=== PATIENT | female | born 1960 | race Caucasian/White ===

== ENCOUNTER 2023-07-21 10:50 | Emergency (ER) | payer OTHER, SELFPAY ==
[2023-07-21 10:54] VITALS: BP 172/100; PULSE 69; RESP 16; TEMP 37.3; O2SAT 98; BMI 33.3
--- NOTE | 2023-07-21 11:42 | ED_ITS ---
HPI - Head Injury General Chief complaint: Head Injury Stated complaint: HEADACHE Time Seen by Provider: 07/21/23 11:35 History of Present Illness HPI Narrative: This patient is here after falling and hitting her head Friday night at home. She said her family members heard a thumping sound and they found her in the bathroom she was sitting up. She remembers getting up to use the bathroom that night but not making it there. After she woke up from the fall, she did use the restroom and then went back to bed. She did not indicate that they want her to come in and get checked even though she did have a loss of consciousness that evening. She is on aspirin. Additionally her blood pressure medicines were just increased recently but she has not been taking her blood pressure at home. She says she has a little bit of a dull aching over the left temporal area. She has not had any drainage from her ears. She had a bloody nose Friday night that stopped on its own. She has not had any vomiting. She does not have any paresis paresthesias tingling or numbness of her trunk torso or extremities. 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 Related Data Home Medications Medication Instructions Recorded Confirmed aspirin 81 mg tablet,delayed 81 mg PO DAILY 07/21/23 07/21/23 release (Adult Aspirin Regimen) buspirone 10 mg tablet 10 mg PO BID 07/21/23 07/21/23 docusate sodium 100 mg capsule 100 mg PO DAILY 07/21/23 07/21/23 (Col-Rite) fexofenadine 60 mg tablet (Ju 60 mg PO BID 07/21/23 07/21/23 Allergy) fluticasone propionate 115 2 puff inhalation BID 07/21/23 07/21/23 mcg-salmeterol 21 mcg/actuation HFA inhaler (Advair HFA) fluticasone propionate 50 2 spray intranasal Q12H 07/21/23 07/21/23 mcg/actuation nasal spray,suspension lisinopril 20 mg tablet 40 mg PO DAILY 07/21/23 07/21/23 metoprolol succinate 25 mg 50 mg PO DAILY 07/21/23 07/21/23 tablet,extended release 24 hr tizanidine 4 mg tablet 4 mg PO Q8H PRN pain 07/21/23 07/21/23 Allergies Allergy/AdvReac Type Severity Reaction Status Date / Time No Known Drug Allergies Allergy Verified 07/21/23 10:54 PFSH PFS Social History Smoking status: Never smoker Exam Narrative Exam Narrative: Very pleasant awake alert [place] x 3 GCS 15. She has mild left temporal discomfort. She does not have any tenderness or palpation of the neck. Very minimal restriction of cervical range of motion due to chronic previous chronic degenerative changes. However motor strength in examination upper extremities is normal with no deficit or symptomatology. There is no CSF otorrhea or rhinorrhea. There is no epistaxis. Her lungs are clear heart sounds are normal there is no S3-S4 or murmur. She has no abdominal discomfort or symptomatology. Her extremities are atraumatic with the exception of minor bruising over the left lateral calf but there is no bony or joint involvement. Constitutional Vital Signs, click to edit/add: Last Vital Signs Temp 99.2 F 07/21/23 10:54 Pulse 69 07/21/23 10:54 Resp 16 07/21/23 10:54 BP 172/100 H 07/21/23 10:54 Pulse Ox 98 07/21/23 10:54 O2 Del Method Room Air 07/21/23 10:54 Course Vital Signs Vital signs: Vital Signs Temperature 99.2 F 07/21/23 10:54 Pulse Rate 69 07/21/23 10:54 Respiratory Rate 16 07/21/23 10:54 Blood Pressure 172/100 H 07/21/23 10:54 Pulse Oximetry 98 07/21/23 10:54 Oxygen Delivery Method Room Air 07/21/23 10:54 Temperature 99.2 F 07/21/23 10:54 Pulse Rate 69 07/21/23 10:54 Respiratory Rate 16 07/21/23 10:54 Blood Pressure 172/100 H 07/21/23 10:54 Pulse Oximetry 98 07/21/23 10:54 Oxygen Delivery Method Room Air 07/21/23 10:54 MDM - Head Injury MDM Narrative Medical decision making narrative: Very pleasant female who 72 hours ago fell while getting up in the middle the evening to go use the restroom. Did not seek care until today because persisting left aching. CT of the head and neurological examination are both completely normal and there is no etiology or explanation based on her EKG and laboratory testing for why she may have had a syncopal episode. This is most consistent with a vasovagal reaction. We did do orthostatic vital signs on here and they are normal. She had a recent increase in her blood pressure medication and I have strongly advised her to monitor her blood pressure on a regular basis. Discharge Plan Discharge Chief Complaint: Head Injury Clinical Impression: Closed head injury Patient Disposition: Home, Self-Care Time of Disposition Decision: 12:43 Prescriptions / Home Meds: No Action buspirone 10 mg tablet 10 mg PO BID fluticasone propionate 50 mcg/actuation spray,suspension 2 spray INTRANASAL Q12H lisinopril 20 mg tablet 40 mg PO DAILY metoprolol succinate 25 mg tablet extended release 24 hr 50 mg PO DAILY tizanidine 4 mg tablet 4 mg PO Q8H PRN (Reason: pain) fluticasone propion-salmeterol [Advair HFA] 115-21 mcg/actuation HFA aerosol inhaler 2 puff inhalation BID fexofenadine [Ju Allergy] 60 mg tablet 60 mg PO BID docusate sodium [Col-Rite] 100 mg capsule 100 mg PO DAILY aspirin [Adult Aspirin Regimen] 81 mg tablet,delayed release (DR/EC) 81 mg PO DAILY Additional Instructions: May use Tylenol. Check your blood pressure frequently follow-up with your primary care doctor Referrals: Chloe Ribeiro MD [Primary Care Provider] - 1 week Stand Alone Forms: Portal Instructions
--- NOTE | 2023-07-21 11:43 | CT_ITS ---
The [address] [address] Patient Name: ENID HORNER MRN: [id number] date: 1960 Sex: F Assigned Patient Location: ER Current Patient Location: ER Accession/Order Number: [id number] Exam Date: 07/21/2023 12:00 Report Date: 07/21/2023 12:38 At the request of: INDIA SERRANO Procedure: CT head/brain wo con EXAM: CT head/brain wo con HISTORY: Trauma left temporal history of fall COMPARISON: None. TECHNIQUE: Axial soft tissue and bone windows through the calvarium with coronal and sagittal reformats. Findings: No depressed or calvarial fracture. The paranasal sinuses and mastoid air cells are well aerated. No air-fluid levels. No extra-axial fluid collection. No intra-axial or extra-axial bleed. No mass effect or midline shift. The boykin-white matter differentiation is preserved. The brain parenchymal volume is age appropriate. The ventricles are nondilated. The basal cisterns are patent. The craniovertebral junction is unremarkable. CT/CT head/brain wo con IMPRESSION: 1. No depressed or calvarial fracture. 2. No acute intracranial bleed. Electronically authenticated by: MELISSA OLIVER Date: 07/21/2023 12:38
--- NOTE | 2023-07-21 11:43 | XR_ITS ---
The [address] [address] Patient Name: ENID HORNER MRN: [id number] date: 1960 Sex: F Assigned Patient Location: ER Current Patient Location: ER Accession/Order Number: [id number] Exam Date: 07/21/2023 12:00 Report Date: 07/21/2023 12:29 At the request of: INDIA SERRANO Procedure: XR chest 1V EXAM: XR chest 1V HISTORY: Syncope; technologist notes state fall 07/19/2023 hitting the head above the left ear on a nightstand. COMPARISON: CT chest dated 10/28/2019. TECHNIQUE: AP erect portable chest radiograph performed. FINDINGS: The trachea is midline. The cardiomediastinal silhouette and hilar shadows are within normal limits. The lung larson are clear. There is no pneumothorax. The osseous structures are unremarkable. There are bilateral breast implants. XR/XR chest 1V IMPRESSION: There is no acute cardiopulmonary process. Electronically authenticated by: INESSA CAMARGO Date: 07/21/2023 12:29
--- NOTE | 2023-07-21 11:43 | ECG_ITS ---
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
[2023-07-21 11:48] VITALS: BP 182/106; BP 184/102; BP 186/112; PULSE 59; PULSE 69; PULSE 70
[2023-07-21 11:58] LABS: Basophils Percent Auto 0.5 % (0.2-2.0); Eosinophils Absolute Auto 0.5 10^3/uL (0.0-0.7); Eosinophils Percent Auto 7.8 % (0.9-7.0); Hematocrit 40.9 % (36.0-48.0); Hemoglobin 13.4 g/dL (12.0-16.0); Immature Granulocytes Abs Auto 0.02 10^3/uL (0.00-0.03); Immature Granulocytes Pct Auto 0.3 % (0.0-0.5); Lymphocytes Absolute Auto 2.1 10^3/uL (1.2-3.8); Lymphocytes Percent Auto 31.6 % (20.5-60.0); Mean Corpuscular HGB Conc 32.8 g/dL (29.9-35.2); Mean Corpuscular Hemoglobin 30.7 pg (26.7-34.0); Mean Corpuscular Volume 93.8 fL (81.0-99.0); Mean Platelet Volume 10.2 fL (9.5-13.5); Monocytes Absolute Auto 0.6 10^3/uL (0.3-0.8); Monocytes Percent Auto 9.5 % (1.7-12.0); Neutrophils Absolute Auto 3.3 10^3/uL (1.4-6.5); Neutrophils Percent Auto 50.3 % (43.0-75.0); Platelet Count 221 10^3/uL (150-450); Red Blood Count 4.36 10^6/uL (4.20-5.40); Red Cell Distribution Width 12.7 % (11.0-15.0); White Blood Count 6.5 10^3/uL (4.0-11.0)
[2023-07-21 12:02] LABS: Alanine Aminotransferase 20 U/L (14-59); Albumin Globulin Ratio 1.2; Albumin Level 3.9 g/dL (3.4-5.0); Alkaline Phosphatase 65 U/L (46-116); Anion Gap 13.6; Aspartate Amino Transferase 16 U/L (15-37); BUN Creatinine Ratio 18.6; Bilirubin Total 0.6 mg/dL (0.2-1.0); Calcium 9.1 mg/dL (8.5-10.1); Carbon Dioxide 28.4 mmol/L (21.0-32.0); Chloride 103 mmol/L (98-107); Estimated GFR (African America >60 (>=60); Estimated GFR (Non-African Ame >60 (>=60); Globulin 3.3 g/dL; Glucose 87 mg/dL (74-106); Sodium 141 mmol/L (136-145); Total Protein 7.2 g/dL (6.4-8.2)
[2023-07-21 12:07] LABS: Bilirubin Urine NEGATIVE (NEGATIVE); Blood Urine TRACE-I (NEGATIVE); Clarity Urine CLEAR (CLEAR); Color Urine LT. YELLOW (YELLOW); Glucose Urine UA NEGATIVE (NEGATIVE); Ketones Urine NEGATIVE (NEGATIVE); Leukocyte Esterase Urine TRACE (NEGATIVE); Nitrite Urine NEGATIVE (NEGATIVE); Protein Urine NEGATIVE (NEG/TRACE); Urobilinogen Urine 0.2 EU/dL (0.2-1.0)
[2023-07-21 12:08] LABS: Urine Microscopic Indicated YES
[2023-07-21 12:13] LABS: Bacteria Urine TRACE #/HPF (NONE SEEN); WBC Urine 0-2 #/HPF (NONE SEEN)
[2023-07-21 12:14] LABS: Cast Seen? NONE SEEN #/LPF (NONE SEEN); Crystals Seen? None Seen #/HPF (None Seen); Mucus Urine NONE SEEN (NONE SEEN); Squamous Epithelial Cell Urine FEW #/LPF (NONE/RARE); Urine Culture Indicated NO
[2023-07-21 12:21] LABS: Lactate/Lactic Acid 1.4 mmol/L (0.4-2.0)
== END 2023-07-21 13:09 | disposition home or self-care (01) ==
PROVIDERS: Emergency Provider Emergency Medicine Emergency Medical Services; PCP Family Medicine
DX: S09.8XXA Other specified injuries of head, initial encounter (principal); W19.XXXA Unspecified fall, initial encounter; Z79.82 Long term (current) use of aspirin; Z79.899 Other long term (current) drug therapy
CPT/HCPCS: 36415; 70450; 71045; 80053; 81001; 83605; 84484; 85025; 93005; 99285

== ENCOUNTER 2023-09-12 16:53 | Emergency (ER) | payer OTHER, SELFPAY ==
[2023-09-12 16:58] VITALS: BP 160/91; PULSE 68; TEMP 36.7; O2SAT 99; BMI 33.3
--- OUTSIDE RECORDS SUMMARY | 2023-09-12 17:12 | XMS_ITS | CCD ---
Author Organization [facility] Care Team Providers Care Tie Worker Name Role Phone Chloe Crum Primary Care Provider CHLOE CRUM Primary Care Unavailable MARK DELATORRE Referring Lillian Crum MD, Chloe Primary Care Provider SKYLA, DR CHLOE Paz Consulting Unavailable CRUM, DR CHLOE Paz Primary Care Unavailable CRUM, DR CHLOE Paz Admitting Unavailable CRUM, DR CHLOE Paz Attending Unavailable CRUM, DR CHLOE Paz Attending Unavailable CRUM, DR CHLOE Paz Consulting Unavailable CRUM, DR CHLOE Paz Primary Care Unavailable CRUM, DR CHLOE Paz Admitting Unavailable [facility], MARY ANNE Consulting Unavailable CRUM, DR CHLOE Paz Attending Unavailable CRUM, DR CHLOE Paz Consulting Unavailable CRUM, DR CHLOE Paz Primary Care Unavailable CRUM, DR CHLOE Paz Admitting Unavailable CRUM, DR CHLOE Paz Attending Unavailable CRUM, DR CHLOE Paz Primary Care Unavailable [place], DR MARY ANNE Nails Consulting Unavailable CRUM, DR CHLOE Paz Admitting Unavailable CRUM, DR CHLOE Paz Consulting Unavailable CRUM, DR CHLOE Paz Attending Unavailable CRUM, DR CHLOE Paz Consulting Unavailable CRUM, DR CHLOE Paz Primary Care Unavailable CRUM, DR CHLOE Paz Admitting Unavailable Chloe Crum Unavailable Lawson Spangler Unavailable CHLOE CRUM Primary Care Unavailable CHLOE CRUM Referring Unavailable Allergies Allergy Classification Reported Allergen(s) Allergy Type Date of Onset Reaction(s) Facility (11 sources) Fish derivative Drug allergy Comment:Shellfi sh Pocketbook Other (11 sources) Shellfish Drug allergy 9 Unknown Pocketbook Other Medications Current Medications Medication Drug Class(es) Dates Sig (Normalized) Sig (Original) acetaminophen 325 mg / HYDROcodone bitartrate 5 mg oral tablet (3 sources) Opioid Agonist Start: 12-13-2014 HYDROcodone-aceta minophen (NORCO) 5-325 MG per tablet 0 12/13/2014 Active [id number] actuat albuterol 0.09 mg/actuat metered dose inhaler (17 sources) beta2-Adrenergic Agonist Start: 07-30-2023 End: 07-30-2023 take 1 puff(s) by inhalation every four hours Albuterol Sulfate Active 2 PUFF INHALATION Every 4 hours 8.5 July 30, 2023 2:34pm Start: 09-03-2022 take 2 puff(s) by in halation every four hours as needed Albuterol Sulfate HFA 108 (90 Base) MCG/ACT 2 puff Inhalation every 4 hrs prn Aug, Active Start: 09-03-2022 take 2 puff(s) by in halation every four hours as needed Albuterol Sulfate HFA 108 (90 Base) MCG/ACT 2 puff Inhalation every 4 hrs prn Aug, Active Start: 03-22-2014 PROAIR HFA 108 (90 BASE) MCG/ACT inhaler Start: 03-22-2014 PROAIR HFA 108 (90 BASE) MCG/ACT inhaler take 2 puff(s) by mo uth every four hours as needed Albuterol Sulfate HFA 108 (90 Base) MCG/ACT INHALE 2 PUFFS BY MOUTH EVERY 4 HOURS NEEDED for 17 Active Albuterol Sulfate 108 (90 Base) MCG/ACT (4 sources) take 1 puff(s) by inhalation every four hours as needed Albuterol Sulfate 108 (90 Base) MCG/ACT 1 puff as needed Inhalation every 4 hrs PRN Active Ju-D Allergy & Congestion (15 sources) Ju-D Allerg y & Congestion PRN Active amLODIPine 5 mg oral tablet (1 source) Dihydropyridine Calcium Channel Will Start: take 1 tablet by mouth once daily Amlodipine (Norvasc) 5 mg tablet Active 5 MG PO Daily August 05, 2023 12:00am Aspir-81 (4 sources) Aspir-81 Active aspirin 81 mg delayed release oral tablet (1 source) Platelet Aggregation Inhibitor, Nonsteroidal Anti-inflammatory Drug Start: take 81 mg by mouth once daily Aspirin Active 81 MG PO Daily August 04, 2023 12:00am azithromycin 250 mg oral tablet (6 sources) Macrolide Antimicrobial Start: Azithromycin 250 MG as directed Orally 2 tabs po today, then 1 tab daily x 4 more days for 5 Apr, Active Start: 09-03-2022 Azithromycin 2 50 MG as directed Orally 2 tabs po today, then 1 tab daily x 4 more days for 5 Aug, Active Azithromycin 250 MG as directed Orally Not-Taking busPIRone hydrochloride 10 mg oral tablet (8 sources) Start: 08-04-2023 take 1 tablet by mouth twice daily Buspirone Active 1 TAB PO Twice daily August 04, 2023 12:00am FreeTextSig: TAKE 1 TABLET BY MOUTH TWICE DAILY; Note: Source Status: Taking; Refills: 1; Qty: 60 Tablet; Provider: Skyla Paz take 1 tablet by mouth twice alanis ly busPIRone HCl 10 mg TAKE 1 TABLET BY MOUTH TWICE DAILY for 30 Active docusate calcium 240 mg oral capsule (12 sources) Start: 08-04-2023 take 240 mg by mouth once daily Docusate Calcium Active 240 MG PO Daily August 04, 2023 12:00am Docusate Calcium Active [id number] 0.3 ml EPINEPHrine 1 mg/ml auto-injector (16 sources) alpha-Adrenergic Agonist, beta-Adrenergic Agonist, Catecholamine Start: 08-04-2023 Epinephrine Activ e 0.3 ML SUBCUT As Directed August 04, 2023 12:00am FreeTextSig: as directed Injection; Note: Source Status: TakingPRN; Provider: Skyla Corona ( ) EpiPen 2-Anthony 0.3 MG/0.3ML as directed Injection PRN Active escitalopram 10 mg oral tablet (6 sources) Serotonin Reuptake Inhibitor Start: 12-27-2022 take 1 tablet by mouth every twenty-four hours Lexapro 10 MG 1 tablet Orally Once a day for 30 day(s) Dec, Active estrogens, conjugated (senior living) 0.625 mg oral tablet (6 sources) Estrogen Start: 03-31-2017 take 1 tablet by mouth once daily estrogens, conjugated, (PREMARIN) 0.625 MG tablet Indications: Surgical menopause Take 1 tablet by mouth daily 90 tablet 3 03/31/2017 Active take 1 tablet by ana cristina th every twenty-four hours Premarin 0.3 MG 1 tablet Orally Once a day for 30 days Not-Taking 12 hr fexofenadine hydrochloride 60 mg / pseudoephedrine hydrochloride 120 mg extended release oral tablet (1 source) alpha-Adrenergic Agonist, Histamine-1 Receptor Antagonist Start: 08-04-2023 take 1 tablet by mouth once, then take 1 tablet by mouth every twelve hours Fexofenadine-Pseudoephedrine (Uj-D 12 Hour) 60-120 mg tablet extended release 12 hr Active TAB PO August 04, 2023 12:00am Medication Name: Ju-D Allergy & Congestion; Note: Source Status: TakingPRN; Provider: Skyla Corona ( ) fluconazole 150 mg oral tablet (3 sources) Azole Antifungal Start: 03-22-2014 fluconazole (DIFLUCAN) 150 M G tablet FLUoxetine 10 mg oral capsule (1 source) Serotonin Reuptake Inhibitor Start: 08-05-2023 take 10 mg by mouth once daily Fluoxetine Active 10 MG PO Daily 30 August 05, 2023 12:00am fluticasone propionate 0.05 mg/actuat metered dose nasal spray (16 sources) Corticosteroid Start: 08-04-2023 take 1 spray(s) nasal route once daily Fluticasone Propionate Active 1 SPRAY INTRANASAL Daily August 04, 2023 12:00am FreeTextSi spray in each nostril Nasally Once a day; Note: Source Status: Taking; Provider: Skyla Corona ( ) take 1 spray(s) nasal route once daily Fluticasone Propionate 50 MCG/ACT 1 spray in each nostril Nasally Once a day Active take 1 spray(s) nasal route once daily Fluticasone Propionate 50 MCG/ACT 1 spray in each nostril Nasally Once a day Active Fluticasone Propion-Salmeterol (19 sources) Corticosteroid, beta2-Adrenergic Agonist Start: 08-04-2023 take 1 puff(s) by mouth every twelve hours as needed Fluticasone Propion-Salmeterol (Advair Diskus) 100-50 mcg/dose blister with device Active INHALATION August 04, 2023 12:00am FreeTextSig: INHALE 1 PUFF BY MOUTH EVERY 12 HOURS NEEDED; Note: Source Status: Taking; Refills: 3; Qty: 60 Blister; Provider: Skyla Corona ( ) Start: 04-30-2015 ADVAIR DISKUS 100-50 MCG/DOSE diskus inhaler take 1 puff(s) by mo uth every twelve hours as needed Advair Diskus 100-50 MCG/ACT INHALE 1 PUFF BY MOUTH EVERY 12 HOURS NEEDED for 30 Active take 1 puff(s) by in halation twice daily as needed Advair Diskus 100-50 MCG/ACT 1 puff Inhalation Twice a day PRN Active levoFLOXacin 500 mg oral tablet (3 sources) Quinolone Antimicrobial Start: 03-12-2013 levofloxacin (LEVAQUIN) 500 MG tablet lisinopril 40 mg oral tablet (19 sources) Angiotensin Converting Enzyme Inhibitor Start: 08-04-2023 take 1 tablet by mouth once daily Lisinopril Active 40 MG PO Daily August 04, 2023 12:00am FreeTextSig: TAKE 1 TABLET BY MOUTH DAILY; Note: Source Status: Refill; Refills: 3; Qty: 90 Tablet; Provider: Skyla Paz Start: 04-22-2017 take 1 tablet by ana cristina th once daily lisinopril (PRINIVIL;ZESTRIL) 20 MG tablet TAKE 1 TABLET BY MOUTH EVERY DAY 1 04/22/2017 Active take 1 tablet by ana cristina th once daily Lisinopril 40 MG TAKE 1 TABLET BY MOUTH DAILY for 90 days Active methylPREDNISolone 4 mg oral tablet (2 sources) Corticosteroid Start: 04-22-2023 methylPREDNISolone 4 MG as directed Orally for 6 days Apr, Active 24 hr metoprolol succinate 50 mg extended release oral tablet (19 sources) beta-Adrenergic Will Start: 08-04-2023 take 1 tablet by mouth once daily Metoprolol Succinate Active 50 MG PO Daily August 04, 2023 12:00am FreeTextSig: TAKE 1 TABLET BY MOUTH DAILY; Note: Source Status: Continue; Provider: Skyla Corona ( ) Start: 04-09-2017 take 1 tablet by ana cristina th once daily in the morning metoprolol succinate (TOPROL XL) 25 MG extended release tablet TAKE 1 TABLET BY MOUTH EVERY MORNING 1 04/09/2017 Active take 1 tablet by ana cristina th once daily Metoprolol Succinate ER 50 mg TAKE 1 TABLET BY MOUTH DAILY Active Multivitamins (4 sources) Multivitamins Ac tive ondansetron 4 mg disintegrating oral tablet (3 sources) Serotonin-3 Receptor Antagonist Start: 015 ondansetron (ZOFRAN-ODT) 4 MG disintegrating tablet 0 12/13/2014 Active predniSONE 20 mg oral tablet (3 sources) Start: 014 predniSONE (DELTASONE) 20 MG tablet 72 hr scopolamine 0.0139 mg/hr transdermal system (2 sources) Anticholinergic Start: 023 Scopolamine 1 MG/3DAYS 1 patch to skin behind the ear as needed Transdermal for 7 days Aug, Active tiZANidine 4 mg oral tablet (16 sources) Central alpha-2 Adrenergic Agonist Start: 024 take 1 tablet by mouth three times daily as needed Tizanidine Active 4 MG PO Three times daily August 04, 2023 12:00am FreeTextSig: TAKE 1 TABLET BY MOUTH THREE TIMES DAILY NEEDED; Note: Source Status: Refill; Refills: 3; Qty: 30 Tablet; Provider: Skyla Paz take 1 tablet by ana cristina th three times daily as needed tiZANidine HCl 4 mg TAKE 1 TABLET BY ANA CRISTINA TH THREE TIMES DAILY NEEDED for 10 days Active Completed/Discontinued Medications Medication Drug Class(es) Dates Sig (Normalized) Sig (Original) ciprofloxacin 250 mg oral tablet (3 sources) Quinolone Antimicrobial take 1 tablet by mouth every twelve hours Ciprofloxacin HCl 250 MG 1 tablet Orally every 12 hrs Not-Taking Digestive Support (3 sources) Digestive Suppor t Not-Taking Fish Oils (3 sources) Fish Oil Not-Raij ing Problems Active Problems Problem Classification Problem Date Documented Da te Episodic/Chronic Abdominal pain (20 sources) Unspecified abdominal pain; Translations: [Abdominal pain] Onset: 02-11-2022 Episodic Allergic reactions (20 sources) Unspecified contact dermatitis due to plants, except food; Translations: [Anaphylactic reaction due to shellfish (crustaceans), initial encounter] Episodic Anal and rectal conditions (4 sources) Rectal pain; Translations: [Rectal pain] Episodic Anxiety disorders (14 sources) Anxiety; Translations: [Anxiety disorder, unspecified] Chronic Asthma (20 sources) Asthma; Translations: [Unspecified asthma, uncomplicated] Chronic Chronic obstructive pulmonary disease and bronchiectasis (1 source) Bronchitis, not specified as acute or chronic Episodic Diseases of mouth; excluding dental (20 sources) Dry mouth, unspecified; Translations: [Xerostomia] Onset: 02-21-2022 Episodic Essential hypertension (20 sources) Hypertensive disorder; Translations: [Essential (primary) hypertension] Chronic Fluid and electrolyte disorders (19 sources) Dehydration; Translations: [Dehydration] Onset: 12-03-2021 Episodic Genitourinary symptoms and ill-defined conditions (20 sources) Unspecified symptoms and signs involving the genitourinary system; Translations: [Dysuria] Onset: 02-08-2022 Episodic Menopausal disorders (19 sources) Menopausal and postmenopausal disorders; Translations: [Unspecified menopausal and perimenopausal disorder] Chronic Nausea and vomiting (4 sources) Nausea; Translations: [Nausea] Episodic Noninfectious gastroenteritis (19 sources) Gastroenteritis; Translations: [Noninfective gastroenteritis and colitis, unspecified] Episodic Osteoarthritis (4 sources) Localized, primary osteoarthritis of the wrist; Translations: [Primary osteoarthritis, left wrist] Onset: 09-18-2016 Chronic Other circulatory disease (4 sources) Elevated blood-pressure reading without diagnosis of hypertension; Translations: [Elevated blood-pressure reading, without diagnosis of hypertension] Episodic Other connective tissue disease (15 sources) Muscle pain; Translations: [Myalgia, unspecified site] Episodic Other connective tissue disease (4 sources) Pain in limb; Translations: [Pain in left upper arm] Episodic Other connective tissue disease (11 sources) Spasm; Translations: [Other muscle spasm] Episodic Other connective tissue disease (2 sources) Other muscle spasm Episodic Other diseases of kidney and ureters (19 sources) Disorder of kidney and/or ureter; Translations: [Other specified disorders of kidney and ureter] Chronic Other gastrointestinal disorders (4 sources) Irritable bowel syndrome; Translations: [Mixed irritable bowel syndrome] Chronic Other gastrointestinal disorders (1 source) Mixed irritable bowel syndrome Chronic Other gastrointestinal disorders (5 sources) Diarrhea; Translations: [Diarrhea] 06-28-2023 Episodic Other gastrointestinal disorders (5 sources) Constipation; Translations: [Constipation] 06-28-2023 Episodic Other lower respiratory disease (15 sources) Nodule of lung; Translations: [Solitary pulmonary nodule] Episodic Other lower respiratory disease (4 sources) Solitary nodule of lung; Translations: [Solitary pulmonary nodule] Episodic Other non-traumatic joint disorders (5 sources) Pain in right hip; Translations: [PAIN IN RIGHT HIP] Onset: 07-18-2022 Episodic Other nutritional; endocrine; and metabolic disorders (15 sources) Body mass index 30+ - obesity; Translations: [Body mass index (BMI) 32.0-32.9, adult] Chronic Other nutritional; endocrine; and metabolic disorders (12 sources) Obese class I; Translations: [Body mass index (BMI) 32.0-32.9, adult] Onset: 09-18-2016 Chronic Other nutritional; endocrine; and metabolic disorders (4 sources) Simple obesity ; Translations: [Other obesity due to excess calories] Onset: 09-18-2016 Chronic Other screening for suspected conditions (not mental disorders or infectious disease) (4 sources) Patient encounter status; Translations: [Encounter for screening mammogram for malignant neoplasm of breast] Onset: 04-08-2023 Episodic Other skin disorders (4 sources) Localized swelling, mass and lump, left lower limb; Translations: [Localized swelling, mass and lump, left lower limb] Episodic Other upper respiratory disease (4 sources) Seasonal allergic rhinitis; Translations: [Other seasonal allergic rhinitis] Chronic Other upper respiratory disease (4 sources) Allergic rhinitis due to pollen; Translations: [Allergic rhinitis due to pollen] Chronic Other upper respiratory infections (4 sources) Chronic sinusitis; Translations: [Chronic sinusitis, unspecified] Chronic Other upper respiratory infections (9 sources) Acute pharyngitis; Translations: [Acute pharyngitis, unspecified] Episodic Residual codes; unclassified (15 sources) Tobacco user; Translations: [Tobacco use] Episodic Skin and subcutaneous tissue infections (19 sources) Cellulitis of left upper limb; Translations: [Cellulitis of left upper limb] Episodic Superficial injury; contusion (4 sources) Nonvenomous insect bite of thigh without infection; Translations: [Insect bite (nonvenomous), unspecified lower leg, initial encounter] Episodic Unclassified (2 sources) Patient encounter status; Translations: [Breast cancer screening by mammogram] Past or Other Problems Problem Classification Problem Date Documented Da te Episodic/Chronic Acute bronchitis (4 sources) Acute bronchitis; Translations: [Acute bronchitis, unspecified] Onset: 03-22-2014 Episodic Cardiac dysrhythmias (4 sources) Palpitations; Translations: [Palpitations] Onset: 04-22-2017 Episodic Inflammation; infection of eye (except that caused by tuberculosis or sexually transmitteddisease) (4 sources) External hordeolum; Translations: [Hordeolum externum unspecified eye, unspecified eyelid] Onset: 10-09-2017 Episodic Other acquired deformities (4 sources) Acquired deformity of head; Translations: [Other acquired deformity of head] Onset: 11-05-2018 Episodic Other connective tissue disease (1 source) Myalgia, unspecified site; Translations: [MYALGIA UNSPECIFIED SITE] Onset: 02-25-2022 Episodic Other lower respiratory disease (4 sources) Cough; Translations: [Cough, unspecified] Onset: 03-22-2014 Episodic Urinary tract infections (4 sources) Acute cystitis; Translations: [Acute cystitis without hematuria] Onset: 08-24-2018 Episodic Results Test Name Value Interpretation Reference Range Facility Automated epithelial cells c ount in urine sediment (number/area)on 07-21-2023 Epithelial cells Auto (Urine sed) [#/Area] FEW #/LPF NONE/RARE [facility] Automated leukocytes count i n urine sediment (number/area)on 07-21-2023 WBC Auto (Urine sed) [#/Area] 2-5 #/HPF 0-2 [facility] Automated urine specific gra vity by refractometryon 07-21-2023 Specific gravity Refractometry automated (U) [Rel density] 1.020 1.005-1.025 [facility] Basophils Auto (Bld) [#/Vol] on 07-21-2023 Basophils (Bld) [#/Vol] 0.0 10 3/uL 0.0-0.1 [facility] Basophils/100 WBC Auto (Bld) on 07-21-2023 Basophils/100 WBC (Bld) 0.5 % 0.2-2.0 [facility] Bilirubin Auto test strip (U ) [Mass/Vol]on 07-21-2023 Bilirubin (U) [Mass/Vol] Negative NEGATIVE [facility] Casts typing in urine sedime nt by light microscopyon 07-21-2023 Casts LM Nom (Urine sed) NONE SEEN #/LPF NONE SEEN [facility] Color Auto (U)on 07-21-2023 Color (U) LT. YELLOW YELLOW [facility] Eosinophils/100 WBC Auto (Bl d)on 07-21-2023 Eosinophils/100 WBC (Bld) 7.8 % 0.9-7.0 [facility] Erythrocyte distribution wid th Auto (RBC) [Ratio]on 07-21-2023 Erythrocyte distribution width (RBC) [Ratio] 12.7 % 11.0-15.0 [facility] Estimated glomerular filtrat ion rate (GFR) non- Americanon 07-21-2023 GFR/1.73 sq M.predicted among non-blacks MDRD (S/P/Bld) [Vol rate/Area] mL/min/{1.73_m2} >=60 [facility] Globulin Calc (S) [Mass/Vol] on 07-21-2023 Globulin (S) [Mass/Vol] 3.3 g/dL [facility] Hematocrit Auto (Bld) [Volum e fraction]on 07-21-2023 Hematocrit (Bld) [Volume fraction] 40.9 % 36.0-48.0 [facility] Hemoglobin [Mass/volume] in Bloodon 07-21-2023 Hemoglobin (Bld) [Mass/Vol] 13.4 g/dL 12.0-16.0 [facility] Ketones Auto test strip (U) [Mass/Vol]on 07-21-2023 Ketones (U) [Mass/Vol] Negative NEGATIVE [facility] Laboratory - Chemistry and C hemistry - challengeon 07-21-2023 Albumin [Mass/Vol] 3.9 g/dL 3.4-5.0 [facility] ALP [Catalytic activity/Vol] 65 U/L 46-116 [facility] ALT [Catalytic activity/Vol] 20 U/L 14-59 [facility] AST [Catalytic activity/Vol] 16 U/L 15-37 [facility] Bilirubin [Mass/Vol] 0.6 mg/dL 0.2-1.0 [facility] Calcium [Mass/Vol] 9.1 mg/dL 8.5-10.1 [facility] Chloride [Moles/Vol] 103 mmol/L 98-107 [facility] CO2 [Moles/Vol] 28.4 mmol/L 21.0-32.0 [facility] Creatinine [Mass/Vol] 0.86 mg/dL 0.55-1.02 [facility] GFR/1.73 sq M.predicted MDRD (S/P/Bld) [Vol rate/Area] mL/min/{1.73_m2} >=60 [facility] Glucose [Mass/Vol] 87 mg/dL 74-106 [facility] Lactate [Moles/Vol] 1.4 mmol/L 0.4-2.0 [facility] Potassium [Moles/Vol] 4.0 mmol/L 3.5-5.1 [facility] Protein [Mass/Vol] 7.2 g/dL 6.4-8.2 [facility] Sodium [Moles/Vol] 141 mmol/L 136-145 [facility] Urea nitrogen [Mass/Vol] 16.0 mg/dL 7.0-18.0 [facility] Urea nitrogen/Creatinine [Mass ratio] 18.6 mg/mg [facility] Laboratory - Hematology and Cell countson 07-21-2023 Immature granulocytes/100 WBC (Bld) 0.3 % 0.0-0.5 [facility] Leukocytes [#/volume] correc nikole for nucleated erythrocytes in Blood by Automated counon 07-21-2023 WBC corrected for nucl RBC Auto (Bld) [#/Vol] 6.5 10 3/uL 4.0-11.0 [facility] Lymphocytes Auto (Bld) [#/Vo l]on 07-21-2023 Lymphocytes (Bld) [#/Vol] 2.1 10 3/uL 1.2-3.8 [facility] Lymphocytes/100 WBC Auto (Bl d)on 07-21-2023 Lymphocytes/100 WBC (Bld) 31.6 % 20.5-60.0 [facility] MCH Auto (RBC) [Entitic mass ]on 07-21-2023 MCH (RBC) [Entitic mass] 30.7 pg 26.7-34.0 [facility] MCHC Auto (RBC) [Mass/Vol]on 07-21-2023 MCHC (RBC) [Mass/Vol] 32.8 g/dL 29.9-35.2 [facility] MCV Auto (RBC) [Entitic vol] on 07-21-2023 MCV (RBC) [Entitic vol] 93.8 fL 81.0-99.0 [facility] Monocytes Auto (Bld) [#/Vol] on 07-21-2023 Monocytes (Bld) [#/Vol] 0.6 10 3/uL 0.3-0.8 [facility] Monocytes/100 WBC Auto (Bld) on 07-21-2023 Monocytes/100 WBC (Bld) 9.5 % 1.7-12.0 [facility] Mucus LM Ql (Urine sed)on Mucus Ql (Urine sed) NONE SEEN NONE SEEN [facility] Neutrophils Auto (Bld) [#/Vo l]on 07-21-2023 Neutrophils (Bld) [#/Vol] 3.3 10 3/uL 1.4-6.5 [facility] Neutrophils/100 WBC Auto (Bl d)on 07-21-2023 Neutrophils/100 WBC (Bld) 50.3 % 43.0-75.0 [facility] No Panel Informationon 07-20 Urine Culture Reflexed NO [facility] Urine Microscopic Review YES [facility] Eosinophils # (Auto) 0.5 10 3/uL 0.0-0.7 [facility] Immature Granulocyte # (Auto) 0.02 10 3/uL 0.00-0.03 [facility] Troponin I High Sensitivity 5.0 pg/mL 4.0-51.3 [facility] Comment on above: CUT-OFF POINTS HAVE BEEN ESTABLISHED BASED ON THE FOURTHUNIVERSAL DEFINITION OF MYOCARDIAL INFARCTION. THE UPPERREFERENCE LIMIT (URL) OF TROPONIN, DEFINED THE 99THPERCENTILE OF cTnI DISTRIBUTION IN A REFERENCE POPULATION,HAS BEEN CONFIRMED THE DECISION THRESHOLD FOR MIDIAGNOSIS.99TH PERCENTILE = 51.4 PG/MLNOTE: HIGH-SENSITIVITY TROPONIN ASSAY IS NOT INTENDED TO BEUSED IN ISOLATION BUT SHOULD BE INTERPRETED IN CONJUNCTIONWITH OTHER DIAGNOSTIC AND CLINICAL INFORMATION. Platelet mean volume Auto (B ld) [Entitic vol]on 07-21-2023 Platelet mean volume (Bld) [Entitic vol] 10.2 fL 9.5-13.5 [facility] Platelets Auto (Bld) [#/Vol] on 07-21-2023 Platelets (Bld) [#/Vol] 221 10 3/uL 150-450 [facility] Protein Auto test strip (U) [Mass/Vol]on 07-21-2023 Protein (U) [Mass/Vol] Negative NEG/TRACE [facility] RBC Auto (Bld) [#/Vol]on RBC (Bld) [#/Vol] 4.36 10 6/uL 4.20-5.40 [facility] Serum or plasma albumin/glob ulin mass ratioon 07-21-2023 Albumin/Globulin [Mass ratio] 1.2 {ratio} [facility] Serum or plasma anion gap de terminationon 07-21-2023 Anion gap [Moles/Vol] 13.6 mmol/L [facility] Specific gravity Auto test s trip (U) [Rel density]on 07-21-2023 Specific gravity (U) [Rel density] CLEAR CLEAR [facility] Urine bacteria detection by automated methodon 07-21-2023 Bacteria Auto Ql (U) TRACE #/HPF NONE SEEN [facility] Urine glucose measurement by test strip (mass/volume)on 07-21-2023 Glucose Test strip (U) [Mass/Vol] Negative NEGATIVE [facility] Urine hemoglobin detection b y automated test stripon 07-21-2023 Hemoglobin Auto test strip Ql (U) TRACE-I NEGATIVE [facility] Urine nitrite detection by a utomated test stripon 07-21-2023 Nitrite Auto test strip Ql (U) TRACE NEGATIVE [facility] Nitrite Auto test strip Ql (U) Negative NEGATIVE [facility] Urine sediment crystal ident ification by light microscopyon 07-21-2023 Crystals LM Nom (Urine sed) None Seen #/HPF None Seen [facility] Urine sediment leukocyte cou nt by microscopy (number/high power field)on 07-21-2023 WBC LM.HPF (Urine sed) [#/Area] 0-2 #/HPF NONE SEEN [facility] Urobilinogen Auto test strip (U) [Mass/Vol]on 07-21-2023 Urobilinogen Qn (U) 0.2 {Clarence'U}/dL 0.2-1.0 [facility] pH Auto test strip (U)on pH (U) 6.0 [pH] 5.0-9.0 [facility] ISABEL DIGITAL SCREEN SELF REFERRAL W OR WO CAD BILATERALon 04-08-2023 [facility] ISABEL DIGITAL SCREEN SELF REFERRAL W OR WO CAD BILATERAL EXAMINATION: SCREENING DIGITAL BILATERAL MAMMOGRAM WITH TOMOSYNTHESIS, 04/08/2023 TECHNIQUE: Screening mammography of the bilateral breasts was performed with tomosynthesis. 2D standard and 3D tomosynthesis combination imaging performed through both breasts in the MLO and CC projection using standard and Lewis implant displaced views. Computer aided detection was utilized in the interpretation of this exam. COMPARISON: 29 January 2021; 20 January 2020; 17 Sep 2018; 01 April 2017; 05 June 1999; 02 May 2015 HISTORY: Screening. Positive family history of breast cancer; sister at age 40. 10 year history of hormonal replacement therapy. 10 years of oral contraception. Breast implant placement TC score 13.31 FINDINGS: Breasts are composed of scattered fibroglandular density. No skin thickening, nipple contour changes, suspicious calcifications, suspicious masses, areas of architectural distortion or significant interval changes are noted. The patient has bilateral prepectoral breast implants. Appearance is stable there is chronic irregularity along the superior aspect of the right breast implant on MLO projection which has been present back to the 2014 study IMPRESSION: No evidence of malignancy. Advise annual screening mammography. Patient has nodular asymmetry adjacent to the superolateral aspect of the posterior right breast implant stable since 2015. BI-RADS 2 BIRADS: BIRADS - CATEGORY 2 Benign Findings. Normal interval follow-up is recommended in 12 months. OVERALL ASSESSMENT - BENIGN A letter of notification will be sent to the patient regarding the results. The [employer] recommends annual mammograms for women 40 years and older. Interpreted by: Maryan Lee MD Signed by: Maryan Lee MD 04/08/23 Final result Normal [facility] XR HIP RT 2 3V W PELVISon XR HIP RT 2 3V W PELVIS EXAM: AP of the pelvis and right hip HISTORY: . Pain in right hip joint . COMPARISON: None. TECHNIQUE: 3 views FINDINGS: The pelvis is intact. No fracture or bony destructive process is noted. No fracture or dislocation of the right hip is noted. Surrounding soft tissues are unremarkable. Joint spaces well-maintained. IMPRESSION: 1. Negative AP of the pelvis. 2. Negative right hip Electronically authenticated by: MARY ANNE VALADEZ Date: 2022-07-18 11:29 Normal [facility] CULTURE URINEon 02-21-2022 CULTURE URINE Culture Observations: LIGHT GROWTH OF MIXED GENITAL YO. NO POTENTIAL PATHOGENS SEEN. Normal [facility] Comment on above: Performed By: #### U RCX #### [facility] [address] [place] [address] Dr. Yosi Smith GLYCOHEMOGLOBIN A1Con 2021 ADA RECOMMENDATION SEE BELOW Normal [facility] Comment on above: Result Comment: ADA RECOMMENDED LIMIT 4.0 - 6.0 ADA THERAPEUTIC TARGET < 7.0 ACTION SUGGESTED > 7.0 Performed By: #### A 1C #### [facility] [address] [place] [address] Dr. Yosi Smith Glucose [Mass/Vol] 108 mg/dL Normal [facility] Comment on above: Performed By: #### A 1C #### [facility] [address] [place] [address] Dr. Yosi Smith HbA1c (Bld) [Mass fraction] 5.4 % Normal 4.5-6.2 [facility] Comment on above: Performed By: #### A 1C #### [facility] [address] [place] [address] Dr. Yosi Smith MAGNESIUMon 02-21-2022 Magnesium [Mass/Vol] 1.7 mg/dL Critically low 1.8-2.4 [facility] Comment on above: Performed By: #### M G BMP #### [facility] [address] [place] [address] Dr. Yosi Smith PROF CHEM 8 (BAS METB)on Anion gap [Moles/Vol] 7.0 mmol/L Normal [facility] Comment on above: Performed By: #### M Yared, BMP #### [facility] [address] [address] [address] Yosi Smith Calcium [Mass/Vol] 8.5 mg/dL Normal 8.5-10.[address] [facility] Comment on above: Performed By: #### M G, BMP #### [facility] [address] [address] [address] Yosi Smith Chloride [Moles/Vol] 107 mmol/L Normal 98-107 [facility] Comment on above: Performed By: #### M G, BMP #### [facility] [address] [place] [address] Dr. Yosi Smith CO2 [Moles/Vol] 30.2 mmol/L Normal 21.0-32.0 [facility] Comment on above: Performed By: #### M G, BMP #### [facility] [address] [place] [address] Dr. Yosi Smith Creatinine [Mass/Vol] 0.87 mg/dL Normal 0.55-1.02 [facility] Comment on above: Performed By: #### M G, BMP #### [facility] [address] [address] [address] Yosi Smith EGFR-AF LIBERIAN >60 Normal >=60 [facility] Comment on above: Performed By: #### M G, BMP #### [facility] [address] [place] [address] Dr. Yosi Smith EGFR-NON AF LIBERIAN >60 Normal >=60 [facility] Comment on above: Performed By: #### M G, BMP #### [facility] [address] [place] [address] Dr. Yosi Smith Glucose [Mass/Vol] 92 mg/dL Normal 74-[address] [facility] Comment on above: Performed By: #### M G, BMP #### [facility] [address] [place] [address] Dr. Yosi Smith Potassium [Moles/Vol] 4.2 mmol/L Normal 3.5-5.1 [facility] Comment on above: Performed By: #### M G, BMP #### [facility] [address] [address] [address] Yosi Smith Sodium [Moles/Vol] 140 mmol/L Normal 136-145 [facility] Comment on above: Performed By: #### M G, BMP #### [facility] [address] [place] [address] Dr. Yosi Smith Urea nitrogen [Mass/Vol] 15.0 mg/dL Normal 7.0-18.0 [facility] Comment on above: Performed By: #### M G, BMP #### [facility] [address] [place] [address] Dr. Yosi Smith Urea nitrogen/Creatinine [Mass ratio] 17.2 mg/mg Normal [facility] Comment on above: Performed By: #### M G, BMP #### [facility] [address] [place] [address] Dr. Yosi Smith CULTURE URINEon 02-11-2022 CULTURE URINE Isolate 1 Enterobacter aerogenes 10,000 cfu/mL of ORGANISM 1 Enterobacter aerogenes ANTIBIOTIC M.I.C RX STATUS Piperacillin/Tazobac ovalle <=4 S F Cefazolin <=4 R F Ceftazidime <=1 S F Ceftriaxone <=1 S F Ertapenem <=0.5 S F Imipenem <=0.25 S F Amikacin <=2 S F Gentamicin <=1 S F Tobramycin <=1 S F Ciprofloxacin <=0.25 S F Levofloxacin <=0.12 S F Nitrofurantoin 64 I F Trimethoprim/Sulfame thoxazole <=20 S F Normal [facility] Comment on above: Performed By: #### U RCX #### [facility] [address] [place] [address] Dr. Yosi Smith XR KUB 1 VIEWon 02-11-2022 XR KUB 1 VIEW EXAMINATION: XR KUB 1 VIEW HISTORY: Abdominal pain COMPARISON: No relevant comparison available. FINDINGS: BOWEL GAS PATTERN: No abnormal dilation or deviation. Moderate stool in the right colon CALCIFICATIONS: None significant. OTHER: Rotatory S-shaped curvature of the spine. No abnormal gaseous collections. 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 Yosi Smith Basophils/100 WBC (Bld) 0.4 % Normal 0.2-2.0 [facility] Comment on above: Performed By: #### C BC #### [facility] [address] [address] [address] Yosi Smith EO # 1.1 103/ul Critically high 0.0-0.7 [facility] Comment on above: Performed By: #### C BC #### [facility] [address] [place] [address] Dr. Yosi Smith Eosinophils/100 WBC (Bld) 10.9 % Critically high 0.9-7.0 [facility] Comment on above: Performed By: #### C BC #### [facility] [address] [address] [address] Yosi Smith Erythrocyte distribution width (RBC) [Ratio] 13.4 % Normal 11.0-15.0 [facility] Comment on above: Performed By: #### C BC #### [facility] [address] [place] [address] Dr. Yosi Smith Hematocrit (Bld) [Volume fraction] 40.1 % Normal 36.0-48.0 [facility] Comment on above: Performed By: #### C BC #### [facility] [address] [place] [address] Dr. Yosi Smith Hemoglobin (Bld) [Mass/Vol] 12.7 g/dL Normal 12.0-16.0 [facility] Comment on above: Performed By: #### C BC #### [facility] [address] [place] [address] Dr. Yosi Smith IG # 0.03 10e3/ul Normal 0.00-0.03 [facility] Comment on above: Performed By: #### C BC #### [facility] [address] [place] [address] Dr. Yosi Smith IG % 0.3 % Normal 0.0-0.5 [facility] Comment on above: Performed By: #### C BC #### [facility] [address] [place] [address] Dr. Yosi Smith LYMPH # 2.5 103/ul Normal 1.2-3.8 [facility] Comment on above: Performed By: #### C BC #### [facility] [address] [place] [address] Dr. Yosi Smith Lymphocytes/100 WBC (Bld) 25.6 % Normal 20.5-60.0 [facility] Comment on above: Performed By: #### C BC #### [facility] [address] [place] [address] Dr. Yosi Smith MANUAL DIFF REQ NO Normal [facility] Comment on above: Performed By: #### C BC #### [facility] [address] [place] [address] Dr. Yosi Smith MCH (RBC) [Entitic mass] 28.5 pg Normal 26.7-34.0 [facility] Comment on above: Performed By: #### C BC #### [facility] [address] [place] [address] Dr. Yosi Smith MCHC (RBC) [Mass/Vol] 31.7 g/dL Normal 29.9-35.2 [facility] Comment on above: Performed By: #### C BC #### [facility] [address] [place] [address] Dr. Yosi Smith MCV (RBC) [Entitic vol] 90.1 fL Normal 81.0-99.0 [facility] Comment on above: Performed By: #### C BC #### [facility] [address] [place] [address] Dr. Yosi Smith MONO # 0.9 103/ul Critically high 0.3-0.8 [facility] Comment on above: Performed By: #### C BC #### [facility] [address] [place] [address] Dr. Yosi Smith Monocytes/100 WBC (Bld) 9.0 % Normal 1.7-12.0 [facility] Comment on above: Performed By: #### C BC #### [facility] [address] [place] [address] Dr. Yosi Smiht NEUT # 5.2 103/ul Normal 1.4-6.5 [facility] Comment on above: Performed By: #### C BC #### [facility] [address] [place] [address] Dr. Yosi Smith Neutrophils/100 WBC (Bld) 53.8 % Normal 43.0-75.0 [facility] Comment on above: Performed By: #### C BC #### [facility] [address] [place] [address] Dr. Yosi Smith Platelet mean volume (Bld) [Entitic vol] 9.5 fL Normal 9.5-13.5 [facility] Comment on above: Performed By: #### C BC #### [facility] [address] [place] [address] Dr. Yosi Smith PLT 242 103/ul Normal 150-450 [facility] Comment on above: Performed By: #### C BC #### [facility] [address] [place] [address] Dr. Yosi Smith RBC 4.45 106/ul Normal 4.20-5.40 [facility] Comment on above: Performed By: #### C BC #### [facility] [address] [place] [address] Dr. Yosi Smith WBC 9.7 103/ul Normal 4.0-11.0 [facility] Comment on above: Performed By: #### C BC #### [facility] [address] [place] [address] Dr. Yosi Smith PROF CHEM 8 (BAS METB)on Anion gap [Moles/Vol] 9.6 mmol/L Normal [facility] Comment on above: Performed By: #### B MP #### [facility] [address] [place] [address] Dr. Yosi Smith Calcium [Mass/Vol] 8.8 mg/dL Normal 8.5-10.[address] [facility] Comment on above: Performed By: #### B MP #### [facility] [address] [address] [address] Yosi Smith Chloride [Moles/Vol] 108 mmol/L Critically high 98-107 [facility] Comment on above: Performed By: #### B MP #### [facility] [address] [address] [address] Yosi Smith CO2 [Moles/Vol] 29.5 mmol/L Normal 21.0-32.0 [facility] Comment on above: Performed By: #### B MP #### [facility] [address] [place] [address] Dr. Yosi Smith Creatinine [Mass/Vol] 0.94 mg/dL Normal 0.55-1.02 [facility] Comment on above: Performed By: #### B MP #### [facility] [address] [address] [address] Yosi Smith EGFR-AF LIBERIAN >60 Normal >=60 [facility] Comment on above: Performed By: #### B MP #### [facility] [address] [place] [address] Dr. Yosi Smith EGFR-NON AF LIBERIAN >60 Normal >=60 [facility] Comment on above: Performed By: #### B MP #### [facility] [address] [address] [address] Yosi Smith Glucose [Mass/Vol] 98 mg/dL Normal 74-[address] [facility] Comment on above: Performed By: #### B MP #### [facility] [address] [place] [address] Dr. Yosi Smith Potassium [Moles/Vol] 4.1 mmol/L Normal 3.5-5.1 [facility] Comment on above: Performed By: #### B MP #### [facility] [address] [place] [address] Dr. Yosi Smith Sodium [Moles/Vol] 143 mmol/L Normal 136-[address] [facility] Comment on above: Performed By: #### B MP #### [facility] [address] [place], [place] [address] Dr. Yosi Smith Urea nitrogen [Mass/Vol] 17.0 mg/dL Normal 7.0-18.0 [facility] Comment on above: Performed By: #### B MP #### [facility] [address] [place], [place] [address] Dr. Yosi Smith Urea nitrogen/Creatinine [Mass ratio] 18.1 mg/mg Normal [facility] Comment on above: Performed By: #### B MP #### [facility] [address] [place], [place] [address] [facility] ISABEL DIGITAL SCREEN SELF REFERRAL W OR WO CAD BILATERALOrdered By: Chloe Crum on 01-29-2021 Benign findings. BI-RADS 2 BIRADS: BIRADS - CATEGORY 2 Benign, no evidence of malignancy. Normal interval follow-up is recommended in 12 months. OVERALL ASSESSMENT - BENIGN A letter of notification will be sent to the patient regarding the results. The [employer] recommends annual mammograms for women 40 years and older. [employer] Phone: EXAMINATION: SCREENING DIGITAL BILATERAL MAMMOGRAM WITH TOMOSYNTHESIS, 01/29/2021 TECHNIQUE: Screening mammography of the bilateral breasts was performed with tomosynthesis. 2D standard and 3D tomosynthesis combination imaging performed through both breasts in the MLO and CC projection. Computer aided detection was utilized in the interpretation of this exam. COMPARISON: 01/20/2020, 09/17/2018 HISTORY: Screening. FINDINGS: The breast tissue is composed of scattered fibroglandular tissue. There is no suspicious mass, suspicious microcalcification, or area of architectural distortion. Prepectoral implants in place. [employer] Phone: [employer] Phone: DEXA BONE DENSITY AXIAL SKEL ETONon 07-27-2020 DEXA BONE DENSITY AXIAL SKELETON FOR CHARGE PURPOSES ONLY REPORT TO FOLLOW Interpreted by: Irma Khan DO Signed by: Irma Khan DO 09/11/20 Final result Normal [facility] ISABEL DIGITAL SCREEN SELF REFERRAL W OR WO CAD BILATERALon 01-20-2020 Benign findings. BI-RADS 2 BIRADS: BIRADS - CATEGORY 2 Benign, no evidence of malignancy. Normal interval follow-up is recommended in 12 months. OVERALL ASSESSMENT - BENIGN A letter of notification will be sent to the patient regarding the results. The [employer] recommends annual mammograms for women 40 years and older. [place] EXAMINATION: SCREENING DIGITAL BILATERAL MAMMOGRAM WITH TOMOSYNTHESIS, 01/20/2020 TECHNIQUE: Screening mammography of the bilateral breasts was performed with tomosynthesis. 2D standard and 3D tomosynthesis combination imaging performed through both breasts in the MLO and CC projection. Computer aided detection was utilized in the interpretation of this exam. COMPARISON: 09/17/2018, 04/01/2017 HISTORY: Screening. FINDINGS: The breast tissue is composed of scattered fibroglandular tissue. There is no suspicious mass, suspicious microcalcification, or area of architectural distortion. Prepectoral silicone implants are again demonstrated. [place], [place], pn Incoming Radiant Results From [employer] - 01/20/2020 1:28 PM EDT EXAMINATION: SCREENING DIGITAL BILATERAL MAMMOGRAM WITH TOMOSYNTHESIS, 01/20/2020 TECHNIQUE: Screening mammography of the bilateral breasts was performed with tomosynthesis. 2D standard and 3D tomosynthesis combination imaging performed through both breasts in the MLO and CC projection. Computer aided detection was utilized in the interpretation of this exam. COMPARISON: 09/17/2018, 04/01/2017 HISTORY: Screening. FINDINGS: The breast tissue is composed of scattered fibroglandular tissue. There is no suspicious mass, suspicious microcalcification, or area of architectural distortion. Prepectoral silicone implants are again demonstrated. IMPRESSION: Benign findings. BI-RADS 2 BIRADS: BIRADS - CATEGORY 2 Benign, no evidence of malignancy. Normal interval follow-up is recommended in 12 months. OVERALL ASSESSMENT - BENIGN A letter of notification will be sent to the patient regarding the results. The [employer] recommends annual mammograms for women 40 years and older. [place], [place] Vital Signs Date Time Vital Sign Value Performing Clinician Facility 08-05-2023 09:56-0400 Body height 165.1 cm [facility] 08-05-2023 09:56-0400 Body mass index (BMI) [Ratio] 33.5 kg/m2 [facility] 08-05-2023 09:56-0400 Body weight 91.22 kg [facility] 08-05-2023 09:56-0400 Diastolic blood pressure 85 mm[Hg] [facility] 08-05-2023 09:56-0400 Heart rate 66 /min [facility] 08-05-2023 09:56-0400 Systolic blood pressure 140 mm[Hg] [facility] 06-04-2023 10:30-0500 Body height 165.1 cm Chloe Crum Other [facility] 06-04-2023 10:30-0500 Body mass index (BMI) [Ratio] 34.04 kg/m2 Chloe Crum Other [facility] Other 06-04-2023 10:30-0500 Body weight 92.81 kg Chloe Crum Other [facility] Other 06-04-2023 10:30-0500 Body weight 92.8 kg [facility] 06-04-2023 10:30-0500 Diastolic blood pressure 83 mm[Hg] Chloe Crum Other [facility] 06-04-2023 10:30-0500 Systolic blood pressure 136 mm[Hg] Chloe Crum Other [facility] 04-22-2023 13:00-0500 Body height 165.1 cm Chloe Crum Other [facility] Other 04-22-2023 13:00-0500 Body mass index (BMI) [Ratio] 33.08 kg/m2 Chloe Crum Other [facility] Other 04-22-2023 13:00-0500 Body weight 90.18 kg Chloe Crum Other [facility] Other 04-22-2023 13:00-0500 Diastolic blood pressure 83 mm[Hg] Chloe Crum Other [facility] Other 04-22-2023 13:00-0500 Systolic blood pressure 129 mm[Hg] Chloe Crum Other [facility] Other 01-21-2023 13:00-0400 Body height 165.1 cm Chloe Crum Other [facility] Other 01-21-2023 13:00-0400 Body mass index (BMI) [Ratio] 33.21 kg/m2 Chloe Crum Other [facility] Other 01-21-2023 13:00-0400 Body weight 90.54 kg Chloe Crum Other [facility] Other 01-21-2023 13:00-0400 Diastolic blood pressure 86 mm[Hg] Chloe Crum Other [facility] Other 01-21-2023 13:00-0400 Systolic blood pressure 134 mm[Hg] Chloe Crum Other [facility] Other 12-27-2022 11:15-0400 Body height 165.1 cm Chloe Crum Other [facility] Other 12-27-2022 11:15-0400 Body mass index (BMI) [Ratio] 33.28 kg/m2 Chloe Crum Other [facility] Other 12-27-2022 11:15-0400 Body weight 90.72 kg Chloe Crum Other [facility] Other 12-27-2022 11:15-0400 Diastolic blood pressure 80 mm[Hg] Chloe Crum Other [facility] Other 12-27-2022 11:15-0400 Systolic blood pressure 135 mm[Hg] Chloe Crum Other [facility] Other 09-03-2022 15:30-0400 Body height 165.1 cm Chloe Crum Other [facility] Other 09-03-2022 15:30-0400 Body mass index (BMI) [Ratio] 34.11 kg/m2 Chloe Crum Other [facility] Other 09-03-2022 15:30-0400 Body temperature 97.7 [degF] Chloe Crum Other [facility] Other 09-03-2022 15:30-0400 Body weight 92.99 kg Chloe Crum Other [facility] Other 09-03-2022 15:30-0400 Diastolic blood pressure 84 mm[Hg] Chloe Crum Other [facility] Other 09-03-2022 15:30-0400 SaO2% (BldA) [Mass fraction] 96 % Chloe Crum Other [facility] Other 09-03-2022 15:30-0400 Systolic blood pressure 136 mm[Hg] Chloe Crum Other [facility] Other 07-18-2022 09:30-0500 Body height 165.1 cm Chloe Crum Other [facility] Other 07-18-2022 09:30-0500 Body mass index (BMI) [Ratio] 31.61 kg/m2 Chloe Crum Other [facility] Other 07-18-2022 09:30-0500 Body weight 86.18 kg Chloe Crum Other [facility] Other 07-18-2022 09:30-0500 Diastolic blood pressure 82 mm[Hg] Chloe Crum Other [facility] Other 07-18-2022 09:30-0500 Systolic blood pressure 130 mm[Hg] Chloe Crum Other [employer] Other Encounters Encounter Date Encounter Type Care Provider Facility Start: 08-05-2023 End: 08-05-2023 ambulatory [facility] Work Phone: Start: 08-05-2023 End: 08-05-2023 Patient encounter procedure [facility] Work Phone: Start: 07-30-2023 Non-patient / Non-visit [facility] Work Phone: Start: 07-21-2023 Non-patient / Non-visit [facility] Work Phone: Start: 06-18-2023 End: 06-18-2023 ambulatory Chloe Crum Other [facility] Other Start: 06-18-2023 Telephone encounter Chloe Crum [facility] Start: 06-04-2023 End: 06-04-2023 ambulatory Chloe Crum Other [facility] Other Start: 06-04-2023 Office outpatient vi sit 15 minutes Chloe Crum [facility] Start: 06-04-2023 End: 06-04-2023 Patient encounter procedure [facility] Start: 04-22-2023 End: 04-22-2023 ambulatory Chloe Crum Other [facility] Other Start: 04-22-2023 Office outpatient vi sit 25 minutes Chloe Crum [facility] Start: 04-22-2023 Telephone encounter [facility] Start: 04-08-2023 End: 04-11-2023 ambulatory CHLOE CRUM [facility] Start: 03-28-2023 End: 03-28-2023 ambulatory Chloe Crum Other [facility] Other Start: 03-28-2023 Telephone encounter Chloe Crum [facility] Start: 01-21-2023 End: 01-21-2023 ambulatory Chloe rCum Other [facility] Other Start: 01-21-2023 Office outpatient vi sit 15 minutes Chloe Crum [facility] Start: 01-16-2023 End: 01-16-2023 ambulatory Chloe Crum Other [employer] Other Start: 01-16-2023 Telephone encounter Lawson Spangler [facility] Start: 12-27-2022 End: 12-27-2022 ambulatory Chloe Crum Other [employer] Other Start: 12-27-2022 Office outpatient vi sit 15 minutes Chloe Crum [facility] Start: 09-03-2022 End: 09-03-2022 ambulatory Chloe Crum Other [employer] Other Start: 09-03-2022 Office outpatient vi sit 15 minutes Chloe Crum [facility] Start: 08-20-2022 End: 08-20-2022 ambulatory Chloe Crum Other [employer] Other Start: 08-20-2022 Telephone encounter Chloe Crum [facility] Start: 07-18-2022 Office outpatient vi sit 15 minutes Chloe Crum [facility] Start: 07-18-2022 Telephone encounter Chloe Crum [facility] Start: 07-18-2022 End: 07-19-[address] CHLOE CRUM Facility: Start: 02-21-2022 End: 02-22-[address] CHLOE CRUM Facility:[facility]1 Start: 02-11-2022 End: 02-12-[address] CHLOE CRUM Facility:[facility] Start: 02-08-2022 End: 02-08-[address] CHLOE CRUM Facility:[facility] Start: 12-03-2021 End: 12-04-[address] CHLOE CRUM Facility:[facility] Start: 01-29-2021 End: 01-31-2021 Subsequent hospital visit by physician [facility] At [facility] Mammography Comment on above: Breast cancer screen ing by mammogram Start: 07-27-2020 End: 07-30-2020 ambulatory CHLOE CRUM [facility] Start: 07-27-2020 End: 07-29-2020 Subsequent hospital visit by physician Agus Tolliver [facility] Comment on above: Screening for osteop orosis Start: 01-20-2020 End: 01-22-2020 Subsequent hospital visit by physician [facility] Mamm[facility] Room At [facility] Mammography Comment on above: Breast cancer screen ing by mammogram Procedures Date Procedure Procedure Detail Performing Clinician Start: 01-29-2021 Screening mammograph y bi 2-view breast inc cad Chloe Crum MD Work Phone: Start: 07-28-2020 RADIOLOGY REPORT [facility] Start: 01-20-2020 Screening mammograph y bi 2-view breast inc cad Malissa Thornton Work Phone: Screening for malign ant neoplasm of colon Chloe Crum Other Plan of Treatment Date Care Activity Detail Author Start: 01-29-2023 Screening for malign ant neoplasm of breast Breast cancer screen [employer] Phone: Start: 01-19-2022 Screening for malign ant neoplasm of breast Breast cancer screen [place] Start: 01-17-2021 Influenza vaccination Flu vaccine (# 1) [employer] Phone: Start: 01-18-2020 Influenza vaccination Flu vaccine (# 1) [place] Start: 10-02-2011 Screening for malign ant neoplasm of colon Colon cancer screen colonoscopy [place] Start: 10-02-2011 Shingles Vaccine (1 of 2) Shingles Vaccine (1 of 2) [place] Start: 2006 Screening for malign ant neoplasm of colon Colon cancer screen colonoscopy [facility] [employer] Phone: Start: 2001 Diabetes screen Diabetes screen [facility] Phone: Start: 2001 Lipid panel Lipid screen [place], [place] Start: 1980 DTaP/Tdap/Td vaccine (1 - Tdap) DTaP/Tdap/Td vaccine (1 - Tdap) [place] Start: 1977 COVID-19 Vaccine (1) COVID-19 Vaccin e (1) [facility] [employer] Phone: Start: 1976 HIV screening HIV screen [place], [place] Start: 1961 Creatinine measurement Creatinine mo nitoring [place], [place] Start: 1961 Hepatitis C screening Hepatitis C sc reen [place], [place] Start: 1961 Potassium monitoring Potassium monit oring [place] End: 07-27-2020 DEXA BONE DENSITY AXIAL SKELETON DEXA BONE DENSITY AXIAL SKELETON Imaging Routine Screening for osteoporosis 1 Occurrences starting 07/27/2020 until 07/27/[address] [facility] Phone: Comment on above: 1 Occurrences starti ng 07/27/2020 until 07/27/2020 DEXA BONE DENSITY AX IAL SKELETON DEXA BONE DENSITY AXIAL SKELETON Imaging Routine Screening for osteoporosis 07/27/2020 9:02 AM EST [facility] Phone: Immunizations Immunization Date Immunization Notes Care Provider Fa bre 06-02-2020 diphtheria, tetanus toxoids and acellular pertussis vaccine, unspecified formulation Chloe Crum Other [facility] 03-17-2020 influenza virus vaccine, split virus (incl. purified surface antigen) Chloe Crum Other [employer] Other 03-17-2020 influenza virus vaccine, unspecified formulation [facility] 03-10-2018 influenza virus vaccine, split virus (incl. purified surface antigen) Chloe Crum Other [employer] Other 03-10-2018 influenza virus vaccine, unspecified formulation [facility] 03-19-2017 Influenza Vaccine, unspecified formulation [place], [place] 03-17-2017 AFLURIA QUADRIVALENT 0.5 ML injection [place], [place] 03-07-2016 tetanus and diphther ia toxoids, adsorbed, preservative free, for adult use (5 Lf of tetanus toxoid and 2 Lf of diphtheria toxoid) Chloe Crum Other [facility] 05-04-2014 influenza virus vaccine, unspecified formulation [place], [place] Payers Date Payer Category Payer Unknown [id number] 1960 Unknown [id number] 1960 Unknown [id number] 1960 Unknown [id number] 1960 Unknown [id number] 1960 Unknown [id number] 1960 Unknown [id number] 1959 Unknown [id number] Private Health Insurance [facility] [id number] Social History Date Type Detail Facility Start: 04-29-2017 End: 06-04-2023 Tobacco smoking status NHIS Never smoker [facility] Start: 04-29-2017 End: 01-29-2021 Tobacco use and exposure Never used [facility] Start: 04-29-2017 End: 01-29-2021 Alcohol intake Current drinker of alcohol (finding) [facility] Sex Assigned At Not on file [facility] Exposure to SARS-CoV-2 (event) Not sure [facility] Start: 1960 Sex Assigned At Female M [employer] Work Phone: Sex Assigned At Sex Assigned At Bir th [employer] Other Clinical Notes 07-18-2022 to 06-04-2023 Note Date & Type Note Facility 06-04-2023 Evaluation note Encounter Date Diagnosis Assessment Notes May, Hypertension (ICD-10 - I10) Continue present dose of metoprolol as HR at home readings are 60-70s. Increase dose of lisinopril. continue to monitor BP at home and followup in 2-3 months. [employer]book Other [id number] Evaluation note* Encounter Date Diagnosis Assessment Notes Treatment Notes Treatment Clinical Notes Apr, Hypertension (ICD-10 - I10) Reviewed home bps: 160s- 190s/80-100 Will increase dose of metoprolol as this should also improve her headaches. Apr, Acute non-recurrent maxillary sinusitis (ICD-10 - J01.00) Sinus infections can be triggered by a secondary infection from a viral URI or even seasonal allergies. Take medications as directed. Use saline nasal spray prior to presciption nasal spray. Take medications as directed, and complete all doses of medication even if you start to feel better. Patient advised to follow up with PCP if symptoms persist or worsen. Patient verbalized understanding and agreement with treatment plan. Apr, Mild intermittent asthma without complication (ICD-10 - J45.20) Pt requests referral to pulmonology for med monitoring of her asthma. Has been on same med for 15 yrs. Has been taking advair, ju, and nasal sprays Apr, Irritable bowel syndrome with both constipation and diarrhea (ICD-10 - K58.2) Pt states she is due for colonoscopy and continues to have IBS symptoms Apr, Screening for colon cancer (ICD-10 - Z12.11) [employer] Other 09-05-2023 Evaluation note* Encounter Date Diagnosis Assessment Notes Treatment Notes Treatment Clinical Notes Jan, Anxiety (ICD-10 - F41.9) Discussed side effects since starting lexapro - notes frequent urination and fatigue. Agrees to stop med and change to buspar. Advised she can take bid everyday or bid prn. She will try 10mg dose and followup as needed. [employer] Other 08-31-2023 Evaluation note* Encounter Date Diagnosis Assessment Notes Treatment Notes Treatment Clinical Notes Dec, Allergic contact dermatitis due to plants, except food (ICD-10 - L23.7) [employer] Other 08-11-2023 Evaluation note* Encounter Date Diagnosis Assessment Notes Treatment Notes Treatment Clinical Notes Dec, Anxiety (ICD-10 - F41.9) Discussed situational stress. Some of symptoms could be linked to anxiety. Will take med for 3-4 weeks and monitor results. Dec, Other muscle spasm (ICD-10 - M62.838) Recurrent problem - pt requests refill of muscle relaxer. [employer]book Other 08-11-2023 Evaluation note* Encounter Date Diagnosis Assessment Notes Treatment Notes Treatment Clinical Notes Dec, Anxiety (ICD-10 - F41.9) Discussed situational stress. Some of symptoms could be linked to anxiety. Will take med for 3-4 weeks and monitor results. Dec, Other muscle spasm (ICD-10 - M62.838) Recurrent problem - pt requests refill of muscle relaxer. Dec, Abnormal TSH (ICD-10 - R79.89) Recheck labs in 3 months. [employer]book Other 04-18-2023 Evaluation note* Encounter Date Diagnosis Assessment Notes Treatment Notes Treatment Clinical Notes Aug, Bronchitis (ICD-10 - J40) Bronchitis: Care Instructions material was printed Pt is acutely sick with acute complicated bronchitis Recommend: Antibiotics: Azithromycin 50 mg po daily for 5 days Bronchodilator: Albuterol with prednisone taper expectorent: Mucinex [employer]book Other 03-02-2023 Evaluation note* Encounter Date Diagnosis Assessment Notes Treatment Notes Treatment Clinical Notes Jul, Right hip pain (ICD-10 - M25.551) [employer]ocketbook Other Evaluation note* Diagnosis Breast cancer screening by mammogram documented in this encounter [facility] Work Phone: evaluation noteNo InformationNort [employer] Other Evaluation noteNo assessment information available [facility] Work Phone: History general Narrative - Reported* Type Description Date Medical History Tobacco use Medical History BMI 32.0-32.9,adult Medical History Cellulitis of left upper extremi ty Medical History Left renal mass Medical History Contact dermatitis due to plant Medical History Anaphylactic reactio n due to shellfish (crustaceans), initial encounter Medical History Dehydration Medical History Hypertension Medical History Dysuria Medical History Menopausal disorder Medical History Pulmonary nodule Medical History Acute right flank pain Medical History Dry mouth Medical History Myalgia Medical History Gastroenteritis Medical History Asthma Surgical History JERI/BSO- HEDGES APPENEDECTOMY Surgical History HYSTERECTOMY Surgical History LAPAROSCOPY Surgical History D&C 2006 Surgical History HERNIA REPAIR Surgical History BREAST IMPLANTS Hospitalization History SEE SURGICAL HX Pocketbook Other Reason for Referral Status Reason Specialty Diagnoses / Procedures Referre d By Contact Referred To Contact Closed Radiology Diagnoses Breast cancer screening by mammogram Procedures JOSSELIN ISABEL DIGITAL SCREEN SELF REFERRAL W OR WO CAD BILATERAL Malissa Thornton, GEOTECHNICAL DEPARTMENT MANAGER - CNM [address] [place] [address] Status Reason Specialty Diagnoses / Procedures Referre d By Contact Referred To Contact Closed Radiology Diagnoses Screening for osteoporosis Procedures DEXA BONE DENSITY AXIAL SKELETON Mark Sepulveda DO [address] [facility] [address] [place] [address] Status Reason Specialty Diagnoses / Procedures Referre d By Contact Referred To Contact Closed Radiology Diagnoses Breast cancer screening by mammogram Procedures JOSSELIN ISABEL DIGITAL SCREEN SELF REFERRAL W OR WO CAD BILATERAL Chloe Crum MD [address] [place] [address] Reason 08/07/22 David off ice. pt requests Dr. Jurado. Xray pending. thanks Diagnosis 1 Right hip pain (M25. 551) Referral Organization [facility] EpiEP yuval Referring Provider First Name Chloe Referring Provider Last Name Skyla Referring Provider Specialty [facility] [employer] Referred Organization [facility] Referred Provider Gee Jurado Referred Address ,[place], [place],[address] Referred Provider Specialty Orthopedic S urgery Referral Priority Routine Referral Appointment Date 2022-08-07 General Notes Miriam Nagy 11:12:20 AM >received today, xr is still pending, insurance card attached, notes locked, and referral faxed P2P Miriam Nagy 07/18/2022 01:13:54 PM >XR result in ,and faxed to Dr. Jurado seperately. Miriam Nagy 07/25/2022 10:16:59 AM >faxed first attempt letter Miriam Nagy 08/01/2022 11:53:42 AM >faxed second attempt letter Miriam Nagy 08/02/2022 04:15:09 PM >RECEIVED FAX WITH APPT DATE AND TIME Reason 08/18/23 @ 10:30 1 5 years of asthma, on same meds, would like to get established. PFT ordered. Diagnosis 1 Mild intermittent as thma without complication (J45.20) Referral Organization [facility] iPling yuval Referring Provider First Name Chloe Referring Provider Last Name Skyla Referring Provider Specialty [facility] [employer] Referred Organization [facility] Pulmonary Dise ase Referred Provider Edmar Sue Referred Address [address] [address],[place], [place],[address] Referred Provider Specialty Pulmonary Jana pereira Referral Priority Routine Referral Appointment Date 2023-08-18 General Notes Miriam Nagy 03:40:30 PM >received today, faxed P2P Miriam Nagy 04/23/2023 01:59:34 PM >pt scheduled Reason *Waiting for appt Saw Beerman - due for screening. Also has diarrhea and constipation. Diagnosis 1 Irritable bowel synd roque with both constipation and diarrhea (K58.2) Referral Organization [facility] C yuval Referring Provider First Name Chloe Referring Provider Last Name Skyla Referring Provider Specialty Family Medi cine Referred Organization [facility] Gastroenterolo gy Referred Provider Sherice Monzon Referred Address [address],[address] Referred Provider Specialty Gastroentero logy Referral Priority Routine General Notes Miriam Nagy 11:52:19 AM >received today, faxed P2P Assessments Diagnosis Breast cancer screening by mammogram Diagnosis Screening for osteoporosis Special screening for osteoporosis Advance Directives Documents on File Type Date Recorded 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 ACP-Advance Directive ACP-Power of Supervisor [employer] Advance Directive Response Recorded Date/ Time Advance Directives No April 24, 2023 12:20pm Summary Purpose Family History Relationship Condition Age at Onset Recorded Date/T charlette sister Unknown Malignant neoplasm Unknown Chief Complaint and Reason for Visit Chief Complaint Bp Issuses Amb Documentation Same On Going Issues-BP Additional Source Comments Reason for Visit (unrecogniz ed section and content) Status Reason Specialty Diagnoses / Procedures Referre d By Contact Referred To Contact Closed Radiology Diagnoses Breast cancer screening by mammogram Procedures JOSSELIN ISABEL DIGITAL SCREEN SELF REFERRAL W OR WO CAD BILATERAL Malissa Thornton, GEOTECHNICAL DEPARTMENT MANAGER - [address] [place] [address] Status Reason Specialty Diagnoses / Procedures Referre d By Contact Referred To Contact Closed Radiology Diagnoses Screening for osteoporosis Procedures DEXA BONE DENSITY AXIAL SKELETON Mark Sepulveda, [address] [facility] [address] [place] [address] Status Reason Specialty Diagnoses / Procedures Referre d By Contact Referred To Contact Closed Radiology Diagnoses Breast cancer screening by mammogram Procedures JOSSELIN ISABEL DIGITAL SCREEN SELF REFERRAL W OR WO CAD BILATERAL Chloe Crum MD [address] [facility] [place] [address] INFORMATION SOURCE (unrecogn ized section and content) DATE CREATED AUTHOR 09/12/2020 [facility] DATE CREATED AUTHOR AUTHOR'S ORGANIZ ATION 07/24/2022 [facility] DATE CREATED AUTHOR AUTHOR'S ORGANIZ ATION 04/12/2023 [facility] pital Care Teams (unrecognized sec tion and content) Team Status: Active Member Role Status Dates Chloe Crum MD Primary Care Provider Active Team Status: Inactive Member Role Status Dates Chloe Crum MD Attending Provider Active St art: June 04, 2023 End: June 04, 2023 Team Status: Active Member Role Status Dates Chloe Crum MD Primary Care Provide r, Attending Provider Active Start: July 21, 2023 Team Status: Active Member Role Status Dates Chloe Crum MD Primary Care Provider Active Start: July 30, 2023 RADHA Gonzalez Attending Provider Active Start : July 30, 2023 Team Status: Inactive Member Role Status Dates Chloe Crum MD Primary Care Provide r, Attending Provider Active Start: August 05, 2023 End: August 05, 2023 Goals (unrecognized section and content) Goals may be documented in a n alternate section FOR RECORDS PERTAINING TO PATIENTS WHO ARE OR HAVE BEEN ENROLLED IN A CHEMICAL DEPENDENCY/SUBSTANCEABUSE PROGRAM, SOME INFORMATION MAY BE OMITTED. This clinical summary was aggregated from multiple sources. Caution should be exercised in using it in the provision of clinical care. This summary normalizes information from multiple sources, and as a consequence, information in this document may materially change the coding, format and clinical context of patient data. In addition, data may be omitted in some cases. CLINICAL DECISIONS SHOULD BE BASED ON THE PRIMARY CLINICAL RECORDS. [employer] provides no warranty or guarantee of the accuracy or completeness of information in this document.
--- NOTE | 2023-09-12 17:18 | XR_ITS ---
The [address] [address] Patient Name: ENID HORNER MRN: [id number] date: 1960 Sex: F Assigned Patient Location: ER Current Patient Location: ER Accession/Order Number: [id number] Exam Date: 09/12/2023 15:55 Report Date: 09/12/2023 18:33 At the request of: MARCIO HURD Procedure: XR acute abdomen series EXAM: XR acute abdomen series HISTORY: abd pain COMPARISON: 10/28/2019 TECHNIQUE: Abdominal X-ray, 1 view FINDINGS: Support devices: None. Bowel: Unremarkable bowel gas pattern. No bowel dilatation. Stool is noted in the ascending and proximal transverse colon, may represent colonic hypomotility. Additional findings: None. XR/XR acute abdomen series IMPRESSION: Stool is noted in the ascending and proximal transverse colon, may represent colonic hypomotility. Electronically authenticated by: GRACIELA DO Date: 09/12/2023 18:33
--- NOTE | 2023-09-12 17:21 | ED.GENADUL1 ---
HPI HPI - General Adult General Chief complaint: Back Pain/Injury Stated complaint: Kidney Issue Time Seen by Provider: 09/12/23 17:02 Source: patient Mode of arrival: walk-in Limitations: no limitations History of Present Illness HPI narrative: Patient is a 62-year-old female who is presenting to the ER with chief complaint of diffuse abdominal pain, bilateral lower back pain this been intermittent for the past week. Patient has a longstanding history of constipation. Patient takes 2 Dulcolax every night. When patient is not having a bowel movement, she will take a laxative. Patient works at a [employer] and a [employer]. Patient last had a bowel movement possibly Friday or Friday. Patient last colonoscopy was 10 years ago. She has no fever or chills. She has no appendix. She has urinary frequency with no urgency or dysuria. Patient is not having lower back pain. Patient has had a kidney infection in the past. Patient's pain and symptoms started on Friday, patient waited today to see if her symptoms continued. All systems are negative except as noted/marked. All systems reviewed and otherwise negative. Nurses note and vital signs reviewed and patient is not hypoxic. General: The patient appears well and in no apparent distress. Patient is resting comfortably on cart. Patient is not toxic, lethargic, or listless. Patient is very stoic. Skin: Warm, dry, no pallor noted. There is no rash noted. No petechiae, purpura. Head: Normocephalic, atraumatic Eye: Normal conjunctiva, no drainage, EOMI. PERRL Ears, Nose, Mouth, and Throat: oral mucosa is moist. Nares patent. Mouth without vesicles. Cardiovascular: Regular Rate and Rhythm, no murmur, gallop, rub Respiratory: Patient is in no distress, no accessory muscle use, lungs are clear to auscultation, no wheezing, rales or rhonchi Back: non-tender, no CVA tenderness bilaterally to percussion. No CT LS midline pain GI: Patient has mild to moderate diffuse no tenderness to palpation, no masses appreciated. No rebound, guarding, or rigidity noted. No distention patient has no flank pain bilateral, patient has mild bilateral paralumbar tenderness to palpation.. Musculoskeletal: Patient has full range of motion of all of the extremities, no motor, sensory, or focal neurological deficits Neurological: A&O x4, normal speech Psychiatric: Cooperative Related Data Home Medications ?Medication ?Instructions ?Recorded ?Confirmed aspirin 81 mg tablet,delayed 81 mg PO DAILY 07/21/23 07/21/23 release (Adult Aspirin Regimen) buspirone 10 mg tablet 10 mg PO BID 07/21/23 07/21/23 docusate sodium 100 mg capsule 100 mg PO DAILY 07/21/23 07/21/23 (Col-Rite) fexofenadine 60 mg tablet (Ju 60 mg PO BID 07/21/23 07/21/23 Allergy) fluticasone propionate 115 2 puff inhalation BID 07/21/23 07/21/23 mcg-salmeterol 21 mcg/actuation HFA inhaler (Advair HFA) fluticasone propionate 50 2 spray intranasal Q12H 07/21/23 07/21/23 mcg/actuation nasal spray,suspension lisinopril 20 mg tablet 40 mg PO DAILY 07/21/23 07/21/23 metoprolol succinate 25 mg 50 mg PO DAILY 07/21/23 07/21/23 tablet,extended release 24 hr tizanidine 4 mg tablet 4 mg PO Q8H PRN pain 07/21/23 07/21/23 Previous Rx's ?Medication ?Instructions ?Recorded dicyclomine 20 mg tablet 20 mg PO TID PRN abdominal pain #7 09/12/23 tabs ondansetron 4 mg disintegrating 4 mg PO Q4H PRN nausea and 09/12/23 tablet vomiting 3 days #6 tabs Allergies Allergy/AdvReac Type Severity Reaction Status Date / Time No Known Drug Allergies Allergy Verified 07/21/23 10:54 Opioid HPI Opioid Management Most Recent Opioid Data: Last Pain Scale 5 09/12/23 17:22 Last JUL Pain Assessment 09/12/23 17:22 PFSH PFSH Social History Smoking status: Never smoker Exam Constitutional Vital Signs, click to edit/add: Last Vital Signs Temp 98.0 F 09/12/23 16:58 Pulse 68 09/12/23 16:58 Resp 18 09/12/23 16:58 BP 160/91 H 09/12/23 16:58 Pulse Ox 99 09/12/23 16:58 O2 Del Method Room Air 09/12/23 16:58 Course Vital Signs Vital signs: Vital Signs Temperature 98.0 F 09/12/23 16:58 Pulse Rate 68 09/12/23 16:58 Respiratory Rate 18 09/12/23 16:58 Blood Pressure 160/91 H 09/12/23 16:58 Pulse Oximetry 99 09/12/23 16:58 Oxygen Delivery Method Room Air 09/12/23 16:58 Temperature 98.0 F 09/12/23 16:58 Pulse Rate 68 09/12/23 16:58 Respiratory Rate 18 09/12/23 16:58 Blood Pressure 160/91 H 09/12/23 16:58 Pulse Oximetry 99 09/12/23 16:58 Oxygen Delivery Method Room Air 09/12/23 16:58 Medical Decision Making MDM Narrative Medical decision making narrative: X-ray shows nonspecific bowel gas pattern, no air-fluid levels, no obstruction. Moderate to severe stool burden. Urine, lab work shows no acute findings. Patient was given 1 L of IV fluid. Patient has a scheduled appointment with a GI physician in the GI office at [facility]. Patient used to see Dr. Yee. Patient has not had a colonoscopy in 10 years. Patient was educated on using MiraLAX twice a day along with 1 or 2 bottles of magnesium citrate today and tomorrow. Patient will follow-up with PCP as needed. No questions at discharge. Lab Data Lab results reviewed: Yes I reviewed the patient's lab results Labs: Lab Results 09/12/23 09/12/23 Range/Units 17:08 17:18 WBC 7.4 (4.0-11.0) 10^3/uL RBC 4.31 (4.20-5.40) 10^6/uL Hgb 13.3 (12.0-16.0) g/dL Hct 40.3 (36.0-48.0) % MCV 93.5 (81.0-99.0) fL MCH 30.9 (26.7-34.0) pg MCHC 33.0 (29.9-35.2) g/dL RDW 12.5 (11.0-15.0) % Plt Count 238 (150-450) 10^3/uL MPV 9.8 (9.5-13.5) fL Neut % (Auto) 55.2 (43.0-75.0) % Lymph % (Auto) 28.2 (20.5-60.0) % Richardson % (Auto) 11.5 (1.7-12.0) % Eos % (Auto) 4.6 (0.9-7.0) % Baso % (Auto) 0.4 (0.2-2.0) % Neut # (Auto) 4.1 (1.4-6.5) 10^3/uL Lymph # (Auto) 2.1 (1.2-3.8) 10^3/uL Richardson # (Auto) 0.9 H (0.3-0.8) 10^3/uL Eos # (Auto) 0.3 (0.0-0.7) 10^3/uL Baso # (Auto) 0.0 (0.0-0.1) 10^3/uL Abs Immat Gran (auto) 0.01 (0.00-0.03) 10^3/uL Imm/Tot Granulo (auto) 0.1 (0.0-0.5) % Sodium 142 (136-145) mmol/L Potassium 4.2 (3.5-5.1) mmol/L Chloride 104 (98-107) mmol/L Carbon Dioxide 28.4 (21.0-32.0) mmol/L Anion Gap 13.8 BUN 17.0 (7.0-18.0) mg/dL Creatinine 0.97 (0.55-1.02) mg/dL Est GFR ( Amer) >60 (>=60) Est GFR (Non-Af Amer) 58 L (>=60) BUN/Creatinine Ratio 17.5 Glucose 92 (74-106) mg/dL Lactate 1.2 (0.4-2.0) mmol/L Calcium 9.4 (8.5-10.1) mg/dL Total Bilirubin 0.3 (0.2-1.0) mg/dL AST 15 (15-37) U/L ALT 21 (14-59) U/L Alkaline Phosphatase 69 (46-116) U/L Total Protein 7.2 (6.4-8.2) g/dL Albumin 4.1 (3.4-5.0) g/dL Globulin 3.1 g/dL Albumin/Globulin Ratio 1.3 Lipase 38.0 (16.0-77.0) U/L Urine Color Lt. yellow (YELLOW) Urine Clarity Clear (CLEAR) Urine pH 6.0 (5.0-9.0) Ur Specific [place] >=1.030 A (1.005-1.025) Urine Protein Negative (NEG/TRACE) mg/dL Urine Glucose (UA) Negative (NEGATIVE) mg/dL Urine Ketones Negative (NEGATIVE) mg/dL Urine Occult Blood Trace-i (NEGATIVE) Urine Nitrite Negative (NEGATIVE) Urine Bilirubin Negative (NEGATIVE) Urine Urobilinogen 0.2 (0.2-1.0) EU/dL Ur Leukocyte Esterase Small A (NEGATIVE) Urine RBC 0-2 (0-2) #/HPF Urine WBC 0-2 A (NONE SEEN) #/HPF Ur Squamous Epith Cells None seen (NONE/RARE) #/LPF Urine Crystals None seen (None Seen) #/HPF Urine Bacteria None seen (NONE SEEN) #/HPF Urine Casts None seen (NONE SEEN) #/LPF Urine Mucus None seen (NONE SEEN) Discharge Plan Discharge Stand Alone Forms: Portal Instructions Chief Complaint: Back Pain/Injury Clinical Impression: Abdominal pain, Constipation Patient Disposition: Home, Self-Care Time of Disposition Decision: 18:46 Condition: Fair Prescriptions / Home Meds: New dicyclomine 20 mg tablet 20 mg PO TID PRN (Reason: abdominal pain) Qty: 7 0RF ondansetron 4 mg tablet,disintegrating 4 mg PO Q4H PRN (Reason: nausea and vomiting) 3 Days Qty: 6 0RF No Action buspirone 10 mg tablet 10 mg PO BID fluticasone propionate 50 mcg/actuation spray,suspension 2 spray INTRANASAL Q12H lisinopril 20 mg tablet 40 mg PO DAILY metoprolol succinate 25 mg tablet extended release 24 hr 50 mg PO DAILY tizanidine 4 mg tablet 4 mg PO Q8H PRN (Reason: pain) fluticasone propion-salmeterol [Advair HFA] 115-21 mcg/actuation HFA aerosol inhaler 2 puff inhalation BID fexofenadine [Ju Allergy] 60 mg tablet 60 mg PO BID docusate sodium [Col-Rite] 100 mg capsule 100 mg PO DAILY aspirin [Adult Aspirin Regimen] 81 mg tablet,delayed release (DR/EC) 81 mg PO DAILY Print Language: [place] Instructions: Constipation (ED), Abdominal Pain (ED) Additional Instructions: MiraLAX twice a day, and drink 1 or 2 bottles of magnesium citrate today and tomorrow to help flush stool. Use Zofran as needed for nausea, Bentyl as needed for abdominal cramping. Follow-up with your GI specialist as scheduled appointment for further evaluation and repeat colonoscopy. Referrals: Chloe Ribeiro MD [Primary Care Provider] - 1 week
[2023-09-12] MEDS: KETOROLAC TROMETHAMINE 30 MG/ML VIAL 15 MG IVP (17:22)
[2023-09-12] MEDS: ONDANSETRON 4 MG RAPDIS TABLET SL (17:22)
[2023-09-12] MEDS: 0.9 % SODIUM CHLORIDE 1,000 ML 999 ML IV (17:22)
[2023-09-12] MEDS: DICYCLOMINE HCL 20 MG/2 ML VIAL IM (17:34)
[2023-09-12 17:35] LABS: Basophils Percent Auto 0.4 % (0.2-2.0); Eosinophils Absolute Auto 0.3 10^3/uL (0.0-0.7); Eosinophils Percent Auto 4.6 % (0.9-7.0); Hematocrit 40.3 % (36.0-48.0); Hemoglobin 13.3 g/dL (12.0-16.0); Immature Granulocytes Abs Auto 0.01 10^3/uL (0.00-0.03); Immature Granulocytes Pct Auto 0.1 % (0.0-0.5); Lymphocytes Absolute Auto 2.1 10^3/uL (1.2-3.8); Lymphocytes Percent Auto 28.2 % (20.5-60.0); Mean Corpuscular Hemoglobin 30.9 pg (26.7-34.0); Mean Corpuscular Volume 93.5 fL (81.0-99.0); Mean Platelet Volume 9.8 fL (9.5-13.5); Monocytes Absolute Auto 0.9 10^3/uL (0.3-0.8); Monocytes Percent Auto 11.5 % (1.7-12.0); Neutrophils Absolute Auto 4.1 10^3/uL (1.4-6.5); Neutrophils Percent Auto 55.2 % (43.0-75.0); Platelet Count 238 10^3/uL (150-450); Red Blood Count 4.31 10^6/uL (4.20-5.40); Red Cell Distribution Width 12.5 % (11.0-15.0); White Blood Count 7.4 10^3/uL (4.0-11.0)
[2023-09-12 17:39] LABS: Bilirubin Urine NEGATIVE (NEGATIVE); Blood Urine TRACE-I (NEGATIVE); Clarity Urine CLEAR (CLEAR); Color Urine LT. YELLOW (YELLOW); Glucose Urine UA NEGATIVE (NEGATIVE); Ketones Urine NEGATIVE (NEGATIVE); Leukocyte Esterase Urine SMALL (NEGATIVE); Nitrite Urine NEGATIVE (NEGATIVE); Protein Urine NEGATIVE (NEG/TRACE); Specific Gravity Urine >=1.030 (1.005-1.025); Urobilinogen Urine 0.2 EU/dL (0.2-1.0)
[2023-09-12 17:42] LABS: Alanine Aminotransferase 21 U/L (14-59); Albumin Globulin Ratio 1.3; Albumin Level 4.1 g/dL (3.4-5.0); Alkaline Phosphatase 69 U/L (46-116); Anion Gap 13.8; Aspartate Amino Transferase 15 U/L (15-37); BUN Creatinine Ratio 17.5; Bilirubin Total 0.3 mg/dL (0.2-1.0); Calcium 9.4 mg/dL (8.5-10.1); Carbon Dioxide 28.4 mmol/L (21.0-32.0); Chloride 104 mmol/L (98-107); Estimated GFR (African America >60 (>=60); Estimated GFR (Non-African Ame 58 (>=60); Globulin 3.1 g/dL; Glucose 92 mg/dL (74-106); Potassium 4.2 mmol/L (3.5-5.1); Sodium 142 mmol/L (136-145); Total Protein 7.2 g/dL (6.4-8.2)
[2023-09-12 17:44] LABS: Lactate/Lactic Acid 1.2 mmol/L (0.4-2.0)
[2023-09-12 17:47] LABS: WBC Urine 0-2 #/HPF (NONE SEEN)
[2023-09-12 17:48] LABS: Bacteria Urine NONE SEEN #/HPF (NONE SEEN); Cast Seen? NONE SEEN #/LPF (NONE SEEN); Crystals Seen? None Seen #/HPF (None Seen); Mucus Urine NONE SEEN (NONE SEEN); RBC Urine 0-2 #/HPF (0-2); Squamous Epithelial Cell Urine NONE SEEN #/LPF (NONE/RARE)
== END 2023-09-12 18:53 | disposition home or self-care (01) ==
PROVIDERS: Emergency Provider Emergency Medicine; PCP Family Medicine
DX: R10.9 Unspecified abdominal pain (principal); K59.00 Constipation, unspecified; Z79.82 Long term (current) use of aspirin; Z79.899 Other long term (current) drug therapy
CPT/HCPCS: 36415; 74022; 80053; 81001; 83605; 83690; 85025; 96372; 96374; 99285; J0500

== ENCOUNTER 2024-05-10 09:44 | Outpatient (RCR) | payer OTHER, SELFPAY | END 2024-05-18 14:28 | disposition home or self-care (01) | LOC: PT 09:44 | PROVIDERS: PCP Family Medicine; Visit Provider Physician Assistant | DX: M25.511 Pain in right shoulder (principal); R53.1 Weakness | CPT/HCPCS: 97110; 97161 ==

== ENCOUNTER 2024-05-19 08:00 | Outpatient (RCR) | payer BC, SELFPAY | END 2024-06-25 13:21 | disposition home or self-care (01) | LOC: PT 08:00 | PROVIDERS: PCP Family Medicine; Visit Provider Physician Assistant | DX: M25.511 Pain in right shoulder (principal); R53.1 Weakness | CPT/HCPCS: 97110; 97112 ==

== ENCOUNTER 2024-10-07 13:28 | Outpatient (REF) | payer BC, SELFPAY ==
--- OUTSIDE RECORDS SUMMARY | 2024-05-17 08:38 | XMS_ITS ---
Author Name Auto Generated Organization OHIP Support Name Relationship Address Phone AníbalJonathan Next of Kin Unknown + Manaida, Francoise Next of Kin Unknown [phone] Jonathan Spangler Next of Kin Unknown + Manaida, Francoise Next of Kin Unknown [phone] JONATHAN SPANGLER Next of Kin [address] [place] [address] + JONATHAN SPANGLER Next of Kin [address] [place] [address] + Jonathan Spangler Next of Kin Unknown + Manaida, Francoise Next of Kin Unknown [phone] Jonathan Spangler Next of Kin Unknown + Manlet, Francoise Next of Kin Unknown [phone] JONATHAN SPANGLER Next of Kin [address] [place] [address] + JONATHAN SPANGLER Next of Kin [address] [place] [address] + JONATHAN SPANGLER Next of Kin [address] [place] [address] + JONATHAN SPANGLER Next of Kin [address] [place] [address] + JONATHAN SPANGLER Next of Kin [address] [place] [address] + JONATHAN SPANGLER Next of Kin [address] [place] [address] + JONATHAN SPANGLER Next of Kin [address] [place] [address] + JONATHAN SPANGLER Next of Kin [address] [place] [address] + Jonathan Spangler Next of Kin Unknown + Manaida, Francoise Next of Kin Unknown [phone] Jonathan Spangler Next of Kin Unknown + Manaida, Francoise Next of Kin Unknown [phone] Jonathan Spangler Next of Kin Unknown + Manaida, Francoise Next of Kin Unknown [phone] Care Team Providers Care System Programmer Name Role Phone Pelon Crumia Jackson Primary Care Unavailable Asaad, Imad Admitting Unavailable Asaad, Imad Attending Unavailable Josie, Andrew Bueno Admitting Unavailable Josie, Andrew A Attending Unavailable Crum, Chloe E Primary Care Unavailable Crum, Chloe E Attending Unavailable Crum, Chloe E Admitting Unavailable Crum, Chloe E Primary Care Unavailable Crum, Chloe E Attending Unavailable Crum, Chloe E Admitting Unavailable Josie, Andrew A Admitting Unavailable Josie, Andrew A Attending Unavailable Crum, Chloe E Primary Care Unavailable Crum, Chloe E Primary Care Unavailable Josie, Andrew A Attending Unavailable Josie, Andrew A Admitting Unavailable Josie, Andrew A Admitting Unavailable Josie, Andrew A Attending Unavailable Crum, Chloe E Primary Care Unavailable CRUM, CHLOE Referring Unavailable CRUM, CHLOE Primary Care Unavailable APLING, GENEVA De Leon Attending Unavailable APLING, GENEVA De Leon Referring Unavailable APLING, GENEVA De Leon Attending Unavailable APLING, GENEVA De Leon Referring Unavailable APLING, GENEVA De Leon Referring Unavailable MELISSA TAVERAS Attending Unavailable APLING, GENEVA De Leon Attending Unavailable APLING, GENEVA De Leon Referring Unavailable APLING, GENEVA De Leon Attending Unavailable APLING, GENEVA De Leon Referring Unavailable PROBLEMS DATE TYPE CONDITION / CODE ATTENDING STATUS [facility] 05/17/2024 Unknown Other specified postprocedural states / Z98.890(ICD-10) Andrew Galindo [facility] 05/07/2024 Unknown Strain of muscle (s) and tendon(s) of the rotator cuff of right shoulder, initial encounter / S46.011A(ICD-10) Andrew Galindo [facility] 04/23/2024 Unknown Encounter for preprocedural laboratory examination / Z01.812(ICD-10) Andrew Galindo [facility] 04/12/2024 Unknown Pain in right sh oulder / M25.511(ICD-10) Andrew Galindo [facility] 04/12/2024 Unknown Encounter for sc reening mammogram for malignant neoplasm of breast / Z12.31(ICD-10) NA [facility] 02/24/2024 Unknown Frequency of rolando turition / R35.0(ICD-10) Chloe Crum [facility] 11/06/2023 Unknown Mixed irritable bowel syndrome / K58.2(ICD-10) Chloe Crum [facility] 11/03/2023 Unknown Constipation, unspecified / K59.00(ICD-10) Asaad, Imad [facility] PROCEDURES No Procedure Records Found RESULTS XR SHOULDER RT MIN 2V* Observed: 4:18 PM Status: COMPLETED Source: [facility] [address] [place] [address] XRay Report Signed Patient: Gwen Spangler MR#: [id number] : 1960 Acct:[id number] Age/Sex: 63 / F ADM Date: 05/17/24 Loc: [facility] Room: Type: [facility] Attending Dr: Andrew Galindo DO Copies to: Andrew Galindo DO Ordering Provider: Andrew Galindo DO Date of Service: 05/17/24 XR/XR shoulder RT min 2V*: Z98.890 - Other specified postprocedural states 3 views right shoulder plain film HISTORY: Status post right rotator cuff repair COMPARISON: 04/12/2024 ACUTE FINDINGS: None DEGENERATIVE CHANGE: Acromioclavicular marginal spurring. Minimal glenohumeral spurring. Adequate joint space. SOFT TISSUE FINDINGS: Unremarkable JOINT EFFUSION: None POSTOP CHANGES: No complication BONY MINERALIZATION: Adequate XR/XR shoulder RT min 2V* IMPRESSION: Mild to moderate degenerative change Impression dictated by: Duke Burgos M.D.05/17/2024 4:19 PM Dictation Location: [facility] Transcribed By: [facility] 05/17/241618 Dictated By: Duke Burgos DO 05/17/241617 Signed By: <Electronically signed by Duke Burgos DO in OV> 05/17/24 161 COMPLETE BLOOD COUNT AUTO DIFF Collected: 04/23/2024 9:50 AM Status: F Source: [facility] TYPE CODE TESTS RESULT OUT OF RANGE REFERENCE UNITS LAB WBC White Blood Count 6.6 Normal 3.8-11.6 10*3/uL LAB UNWBC Uncorrected WBC 6.6 Normal 3.8-11.6 10*3/uL LAB RBC Red Blood Count 4.41 Normal 3.60-5.00 10*6/u L LAB HGB Hemoglobin 13.6 Normal 11.8-15.4 g/dL LAB HCT Hematocrit 40.7 Normal 34.0-46.4 % LAB MCV Mean Corpuscular Volume 92.4 Normal 80-100 fL LAB MCH Mean Corpuscular Hemoglobin 30.8 Normal 24.7-34.3 pg LAB MCHC Mean Corpuscular HGB Conc 33.3 Normal 32.0-35.0 g/dL LAB RDW Red Cell Distribution Width 13.9 Normal 11.9-15.3 % LAB PLT Platelet Count 205 Normal 150-450 10*3/uL LAB MPV Mean Platelet Volume 7.8 Normal 6.3-10.7 fL LAB NE% Neutrophils % (Auto) 58.9 . % LAB LY% Lymphocytes % (Auto) 25.5 . % LAB MO% Monocytes % (Auto) 10.6 . % LAB EO% Eosinophils % (Auto) 4.5 . % LAB BA% Basophils % (Auto) 0.5 . % LAB NRBC% NRBC% 0.1 Normal 0-0.5 /100{WBC} LAB NE# Neutrophils # (Auto) 3.9 Normal 1.8-7.7 10*3/uL LAB LY# Lymphocytes # (Auto) 1.7 Normal 1.00-4.8 10*3/uL LAB MO# Monocytes # (Auto) 0.7 Normal 0.0-0.8 10*3/uL LAB EO# Eosinophils # (Auto) 0.3 Normal 0.0-0.45 10*3/uL LAB BA# Basophils # (Auto) 0.0 Normal 0.0-0.2 10*3/uL Result Comment: PERFORMED BY : [place] [address] PATHOLOGIST [employer] MANAGEMENT CONSULTANT KWSAI LINN M.D. Performed By: #### CMP wRFX A1C, CBC #### [facility] [address] [place] [address] [facility] CMP WITH REFLEX TO A1C Collected: 04/23/2024 9:50 AM Status: F Source: [facility] TYPE CODE TESTS RESULT OUT OF RANGE REFERENCE UNITS LAB EBS GLUCOSE Glucose, Employe e SCR 86 Normal 70-100 mg/dL LAB BUN Blood Urea Nitrogen 19 Normal 7-25 mg/d L LAB CREATT Creatinine 0.79 Normal 0.60-1.20 mg/dL LAB GFReNR Estimated GFR >60.0 mL/Min LAB NA Sodium 142 Normal 136-145 mmol/L LAB K Potassium 4.4 Normal 3.5-5.1 mmol/L LAB CL Chloride 108 High 98-107 mmol/L LAB CO2 Carbon Dioxide 28.8 Normal 21.0-31.0 mmol/L LAB GAP Anion Gap 9.6 Normal 6.0-15.0 meq/L LAB CA Calcium 9.3 Normal 8.6-10.3 mg/dL LAB TP Total Protein 6.4 Normal 6.4-8.9 g/dL LAB ALB Albumin Level 4.3 Normal 3.5-5.7 g/dL LAB GLOB Globulin 2.1 g/dL LAB AGRATIO Albumin/Globulin Ratio 2.0 LAB BILIT Bilirubin,Total 0.5 Normal 0.3-1.0 mg/dL LAB AST Aspartate Amino Transferase 13 Normal 13-39 U/L LAB ALT Alanine Aminotransferase 10 Normal 7-52 U/L LAB ALP Alkaline Phosphatase 50 Normal 34-104 U/L Result Comment: PERFORMED BY : [facility] [address] [place] [address] PATHOLOGIST [employer]NAG[employer] CONSULTANT KWASI LINN M.D. Performed By: #### CMP wRFX A1C, CBC #### [facility] [address] [place] [address] [facility] ECG 12 LEAD ECG Observed: 04/23/2024 9:43 AM Status: COMPLETED Source: [facility] [place] [address] [place] [address] Electrocardiograph Report Signed Patient: Gwen Spangler MR#: [id number] : 1960 Acct:[id number] Age/Sex: 63 / F ADM Date: 04/23/24 Loc: [facility]: [facility] Att[facility] Dr: Andrew Galindo DO Ordering Provider: Andrew Galindo DO Date of Service: 04/23/2411/09/930 ECG/ECG 12 lead ECG: Pre op Copies to: Test Reason : Blood Pressure : */* mmHG Vent. Rate : 56 BPM Atrial Rate : 56 BPM P-R Int : 164 ms QRS Dur : 82 ms QT Int : 426 ms P-R-T Axes : 48 52 36 degrees QTcB Int : 411 ms Sinus bradycardia Non specific T wave abnormality in inferior leads Confirmed by Candelaria Hayes ([id number]) on 04/24/2024 7:33:05 PM Referred By: Electronically Signed By: Candelaria Hayes Transcribed By: MUS Signed By Candelaria Hayes MD 4 1933 XR SHOULDER RT MIN 2V* Observed: 024 9:04 PM Status: COMPLETED Source: [facility] [address] [place] [address] XRay Report Signed Patient: Gwen Spangler MR#: [id number] : 1960 Acct:[id number] Age/Sex: 63 / F ADM Date: 04/12/24 Loc: [facility]: [facility] Attending Dr: Andrew Galindo DO Copies to: Andrew Galindo DO Ordering Provider: Andrew Galindo DO Date of Service: 04/12/24 XR/XR shoulder RT min 2V*: M25.511 - Pain in right shoulder RIGHT SHOULDER - - 4 views CLINICAL HISTORY: Right shoulder pain following fall 5 weeks ago. COMPARISON: None FINDINGS: Mild degenerative changes of the right AC and glenohumeral joints without acute bony process. XR/XR shoulder RT min 2V* IMPRESSION: MILD DEGENERATIVE CHANGES OF THE RIGHT SHOULDER WITHOUT ACUTE BONY PROCESS. Impression dictated by: Emilio Malagon Jr., D.O.04/12/2024 9:04 PM Dictation Location: RADIO--18 Transcribed By: [facility] 04/12/242103 Dictated By: Emilio Malagon Jr, DO 04/12/242103 Signed By: <Electronically signed by Emilio Malagon Jr, DO in OV> 04/12/242103 JOSSELIN ISABEL DIGITAL SCREEN SELF REFERRAL W OR WO CAD BILATERAL Observed: 04/12/2024 12:01 PM Status: F Source: [facility] EXAMINATION: SCREENING DIGITAL BILATERAL MAMMOGRAM WITH TOMOSYNTHESIS, 04/12/2024 TECHNIQUE: Screening mammography of the bilateral breasts was performed with tomosynthesis. 2D standard and 3D tomosynthesis combination imaging performed through both breasts in the MLO and CC projection with implants included and excluded. Computer aided detection was utilized in the interpretation of this exam. COMPARISON: 01/29/2021, 04/08/2023. HISTORY: Screening. FINDINGS: There are scattered areas of fibroglandular density. There is no new dominant mass, suspicious microcalcification, or area of architectural distortion. Prepectoral silicone implants. IMPRESSION: No mammographic evidence of malignancy. BIRADS: BIRADS - CATEGORY 1 Negative, no evidence of malignancy. Normal interval follow-up is recommended in 12 months. OVERALL ASSESSMENT - NEGATIVE A letter of notification will be sent to the patient regarding the results. The [place] [employer] and the [place] [employer] recommend annual mammograms for women 40 years and older. Performing Facility: [place] [address] Interpreted by: Garrett Cruz MD Signed by: Garrett Cruz MD 04/12/24 Final result MR SHOULDER RIGHT WO IV CONTRAST Observed: 03/25/2024 10:20 AM Status: F Source: [facility] EXAMINATION/TECHNIQUE: MR GLENDY MICHAUD RIGHT WO IV CONTRAST HISTORY: Fall 3 weeks ago. Right anterior and lateral shoulder pain. COMPARISON: Radiographs 03/03/2024. RESULT: Limitations from motion. Rotator Cuff Tendons: Full-thickness tearing involving the majority of distal supraspinatus at the footplate with slight medial retraction of torn fibers to near the acromion, with underlying tendinosis. Mild tendinosis involving infraspinatus and subscapularis, without evidence for tear within limits of motion. Teres minor appears intact. Long Head Biceps Tendon: Appears grossly intact with appropriate location. Muscle: Muscle bulk and signal intensity are within normal limits. Labrum: Areas of fraying/tearing superiorly. Bones and Marrow: No evidence of fracture or bone marrow replacing process. Glenohumeral Joint: No distinct measurable full-thickness chondral defect within limits of motion. Small joint effusion. Acromioclavicular Joint: Mild to moderate degenerative changes. Downsloping of the acromion. Undersurface osteophytes. Other: Fluid extending into the subacromial subdeltoid bursa. IMPRESSION: Full-thickness tearing involving the majority of distal supraspinatus. ELECTRONICALLY SIGNED BY: Feliz Calloway MD URINE CULTURE Observed: 02/24/2024 10:45 AM Status: F Source: [facility] 50,000 colonies/ml mixed bacterial skin contaminants 2 Days PERFORMED BY: [place] [address] PATHOLOGIST [employer] MANAGEMENT CONSULTANT GERALD FELIX M.D. Performed By: #### CUU #### [address] ABDOMEN PELVIS W CON Observed: 2023 10:34 AM Status: COMPLETED Source: [facility] [place] [address] CT Scan Report Signed Patient: Gwen Spangler MR#: [id number] : 1960 Acct:[id number] Age/Sex: 63 / F ADM Date: 11/06/23 Loc: CT Room: Type: [facility] Attending Dr: Chloe Crum MD Copies to: Chloe Crum MD Ordering Provider: Chloe Crum MD Date of Service: 11/06/23 CT/CT abdomen pelvis w con: K58.2 - Mixed irritable bowel syndrome CT ABDOMEN AND PELVIS WITH INTRAVENOUS CONTRAST: CLINICAL HISTORY: Right lower quadrant pain radiating to flank for 3 months. COMPARISON: CT abdomen and pelvis 12/08/2012 TECHNIQUE: Spiral images were obtained through the abdomen and pelvis following the administration of intravenous contrast. This CT exam was performed using one or more following dose reduction techniques: Automated exposure control, adjustment of the mA and/or kV according to patient size, or use of iterative reconstruction technique. FINDINGS: Lung Bases: [6 mild scarring.] Organs:Liver portal vein gallbladder spleen pancreas and adrenal glands all appear unremarkable. No enhancing renal mass or hydronephrosis. Abdominal aorta appears normal in caliber.[ GI: Stomach is grossly unremarkable. Small bowel appears nondilated. No acute colonic abnormality.[ Pelvis:[Urinary bladder is grossly unremarkable. Uterus has been removed. No adnexal mass.] Peritoneum/Retroperitoneum:No free air, free fluid or lymphadenopathy.[ Abd wall/Bones:Abdominal wall demonstrate no acute findings. Small fat filled umbilical hernia. Osseous structures demonstrate degenerative change. Scoliosis. CT/CT abdomen pelvis w con IMPRESSION: No acute findings. Impression dictated by: Emilio Malagon Jr., D.O.11/06/2023 10:37 AM Dictation Location: [place] [address] Transcribed By: [facility] 11/06/23 1037 Dictated By: Emilio Malagon Jr, DO 11/06/23 1034 Signed By: <Electronically signed by Emilio Malagon Jr, DO in OV> 11/06/23 1037 ALLERGIES DATE TYPE / CODE NAME / CODE REACTION SEVERITY SOURCE 05/17/2024 Drug Allergy/4160 47751(SNOMED CT) amoxicillin/F 696457849(RXN ORM) Gastrointestinal Upset Unknown [facility] 12/11/2023 Drug Allergy/4160 89689(SNOMED CT) No Known Allergies/F00 2971532(RXNOR M) Unknown [facility] ENCOUNTERS ADMIT/DISCHARGE ACCOUNT NUMBER ADMITTING ENCOUNTER CLASS LOCATION SOURCE 05/17/2024/05/17/20 [id number] [facility] 05/07/2024/05/07/20 [id number] [facility] 05/03/2024/05/03/20 [id number] Ambulatory Building:PLYCOR OPERATOR [facility] 05/03/2024/05/03/20 24 [id number] Ambulatory Building:PLYCOR OPERATOR [facility] 04/23/2024/04/23/20 24 [id number] [facility] 04/12/2024/04/12/20 24 [id number] [facility] 04/12/2024/04/14/20 24 [id number] Ambulatory Building:[facility] 04/07/2024/04/07/20 24 [id number] Ambulatory Building:PLYCOR OPERATOR [facility] 04/07/2024/04/07/20 24 [id number] Ambulatory Building:[facility] 04/06/2024/04/06/20 24 [id number] Ambulatory Building:PLYCOR OPERATOR [facility] 03/25/2024/03/25/20 24 [id number] Ambulatory Building:R [facility] 03/17/2024/03/17/20 24 [id number] Ambulatory Building:[facility]COR OPERATOR [facility] 03/17/2024/03/17/20 24 [id number] Ambulatory Building:[facility] 03/03/2024/03/03/20 24 [id number] Ambulatory Building:[facility] 03/03/2024/03/03/20 24 [id number] Ambulatory Building:[facility] 02/24/2024/02/24/20 24 [id number] [facility] 11/06/2023/11/06/19 24 [id number] [facility] 11/03/2023/11/03/19 24 [id number] Sherice Monzon Ambulatory [facility] PAYERS ENCOUNTER GUARANTOR PAYER SUBSCRIBER SOURCE 05/17/2024 Gwen R[place]con [place] [address]Zcu: () Primary Insurance:MMOPolicy Number: [id number] e Date:0986-86-69UH [address] [place] [address]TU: Jonathan Wade: [id number] [place] [address]Yov: () [facility] 05/17/2024 Secondary Insurance:Self PayPolicy Number: Effective Date:2024-05-17 [facility] 05/07/2024 Gwen Colon [address], [facility]Bpl: () Primary Insurance:MMOPolicy Number: [id number] e Date:1381-00-26YF [id number] [place] [address]WL: Jonathan Wade: [id number] [place] [address]Bah: () [facility] 05/07/2024 Secondary Insurance:Self PayPolicy Number: Effective Date:2024-04-12 NOT GIVENUNK [facility] 05/03/2024 GWEN WADE: [place] [address]Lae: () Primary Insurance:MEDICAL MUTUALPolicy Number: [id number] e Date:2023-05-19 JONATHAN WADE: [id number] [place] [address] [facility] 05/03/2024 GWEN WADE: [place] [address]Rxl: () Primary Insurance:MEDICAL MUTUALPolicy Number: [id number] e Date:2023-05-19 JONATHAN WADE: [id number] [place] [address] [facility] 04/23/2024 [place] [address]Jti: (HP) Primary Insurance:MMOPolicy Number: [id number] e Date:1265-99-33ZG [phone] [place] [address]CR: Jonathan Wade: [id number] [place] [address]Rip: () [facility] 04/23/2024 Secondary Insurance:Self PayPolicy Number: Effective Date:2024-04-12 NOT GIVENUNK [facility] 04/12/2024 Gwen Spangler[address] [place] [address]Lqw: () Primary Insurance:MMOPolicy Number: [id number] e Date:6683-29-07FZ [id number] [place] [address]TH: Jonathan Wade: [id number] [place] [address]Zmw: () [facility] 04/12/2024 Secondary Insurance:Self PayPolicy Number: Effective Date:2024-04-12 NOT GIVENUNK [facility] 04/12/2024 GWEN WADE: [address], [place] [address]Iyf: (HP) () Primary Insurance:MEDICAL MUTUALPolicy Number: [id number] e Date:2019-05-19[address] [address]OB: JONATHAN WADE: [id number], [place] [address]Fdq: (HP) [facility] 04/07/2024 GWEN WADE: [place] [address]Bnb: () Primary Insurance:MEDICAL MUTUALPolicy Number: [id number] e Date:2023-05-19 JONATHAN WADE: [id number] [place] [address] [facility] 04/07/2024 GWEN WADE: [place] [address]Coj: () Primary Insurance:MEDICAL MUTUALPolicy Number: [id number] e Date:2023-05-19 JONATHAN WADE: [id number] [place] [address] [facility] 04/06/2024 GWEN WADE: [place] [address]Ejz: () Primary Insurance:MEDICAL MUTUALPolicy Number: [id number] e Date:2023-05-19 JONATHAN WADE: [id number] [place] [address] [facility] 03/25/2024 GWEN WADE: [place] [address]Nzh: () Primary Insurance:MEDICAL MUTUALPolicy Number: [id number] e Date:2023-05-19 JONATHAN WADE: [id number] [place] [address] [facility] 03/17/2024 GWEN WADE: [place] [address]Aat: (HP) Primary Insurance:MEDICAL MUTUALPolicy Number: [id number] e Date:2023-05-19 JONATHAN WADE: [id number] [place] [address] [facility] 03/17/2024 GWEN WADE: [place] [address]Jib: (HP) Primary Insurance:MEDICAL MUTUALPolicy Number: [id number] e Date:2023-05-19 JONATHAN WADE: [id number] [place] [address] [facility] 03/03/2024 GWEN WADE: [place] [address]Gpk: (HP) Primary Insurance:MEDICAL MUTUALPolicy Number: [id number] e Date:2023-05-19 JONATHAN WADE: [id number] [place] [address] [facility] 03/03/2024 GWEN WADE: [place] [address]Jpa: (HP) Primary Insurance:MEDICAL MUTUALPolicy Number: [id number] e Date:2023-05-19 JONATHAN WADE: [id number] [place] [address] [facility] 02/24/2024 Gwen Spangler[address] [place] [address]Kfj: () Primary Insurance:MMOPolicy Number: [id number] e Date:8668-51-43VM [id number] [place] [address]YD: Jonathan Wade: [id number] [place] [address]Bhi: () [facility] 02/24/2024 Secondary Insurance:Self PayPolicy Number: Effective Date:2024-02-24 [facility] 11/06/2023 [place] [address]Jhy: () Primary Insurance:MMOPolicy Number: [id number] e Date:9977-29-82OJ [phone] [place] [address]QJ: Jonathan Wade: [id number] [place] [address]Hlo: () [facility] 11/06/2023 Secondary Insurance:Self PayPolicy Number: Effective Date:2023-11-03 [facility] 11/03/2023 Gwen Colon [address] [facility]Kgj: () Primary Insurance:MMOPolicy Number: [id number] e Date:3434-66-41IC [id number] [place] [address]EG: Jonathan Wade: [id number] [place] [address]Dzf: () [facility] 11/03/2023 Secondary Insurance:Self PayPolicy Number: Effective Date:2023-09-18 NOT GIVENUNK [facility]
--- OUTSIDE RECORDS SUMMARY | 2024-08-12 07:20 | XMS_ITS ---
Author Organization The [facility] in [place] Address [address] [place] [address] Care Team Providers Care Pipe Layer Helper Name Role Phone Chloe Ribeiro Primary Care Provider David Jett [phone] REASON FOR VISIT Appointment-FPG Transfer Encounters Encounter Location Date Provider Diagnosis Pulmonary Medicine [place] [address] [place] [address] 08/12/2024 David Harmon Plan Of Treatment Next Appt Details Provider Name:David Harmon, 10/28/2024 10:00:00 AM, [address] [place], [address], Progress Notes * Gwen HORNER MDOB:1960 ( 63 yo F)Acc No.[id number]:08/12/2024 Patient: Haley MACDONALD Gwen Rincon :1960 A ge:63 Y S ex:Female Address:[facility], later [facility] [place], [address] * true * Date: Generated for Printi ng/Faxing/eTransmitting on: 0 10/07/2024 01:30 PM EDT
--- OUTSIDE RECORDS SUMMARY | 2024-10-07 13:30 | XMS_ITS | Clinical Summary ---
Author Organization [facility] Address [address] [email or web address] [address] Care Team Providers Care Epidemiology Intern Name Role Phone Chloe Ribeiro MD Primary Care Provider [phone] Allergies No known active allergies Medications levofloxacin (LEVAQUIN) 500 MG tablet 03/12/20 13 Active PROAIR HFA 108 (90 BASE) MCG/ACT inhaler 1 03/22/20 14 Active fluconazole (DIFLUCAN) 150 MG tablet 0 03/22/20 14 Active predniSONE (DELTASONE) 20 MG tablet 0 03/22/20 14 Active HYDROcodone-acetam inophen (NORCO) 5-325 MG per tablet 0 12/14/19 15 Active ondansetron (ZOFRAN-ODT) 4 MG disintegrating tablet 0 12/14/19 15 Active ADVAIR DISKUS 100-50 MCG/DOSE diskus inhaler 04/30/20 15 Active estrogens, conjugated, (PREMARIN) 0.625 MG tabletIndications: Surgical menopause Take 1 tablet by mouth daily 90 tablet 3 03/31/20 17 Active lisinopril (PRINIVIL;ZESTRIL) 20 MG tablet TAKE 1 TABLET BY MOUTH EVERY DAY 1 04/22/20 17 Active metoprolol succinate (TOPROL XL) 25 MG extended release tablet TAKE 1 TABLET BY MOUTH EVERY MORNING 1 04/09/20 17 Active AFLURIA QUADRIVALENT 0.5 ML injection ADMINISTERED AT [facility] 0 03/17/20 17 Active Active Problems No known active problems Immunizations Immunization Administration Dates Next Due Influenza Vaccine, unspecified formulation 03/19 Influenza Virus Vaccine 05/04/2014 Family History * Patient is adopted Medical History Relation Name Comments Breast Cancer Half-Sister 1 Relation Name Status Comments Half-Sister 1 Alive Half-Sister 2 Alive Half-Sister 3 Alive Social History Tobacco Use Types Packs/Day Years Used Date Smoking Tobacco: Never Smokeless Tobacco: Never Tobacco Cessation:Counseling Given: Not Answered Alcohol Use Standard Drinks/Week Comments Yes 0 (1 standard drink = 0.6 oz pur e alcohol) PHQ-2 Answer Date Recorded PHQ-9 Total Score 0 07/25/2020 Comments No Sex and Gender Information Value Date Recorded Sex Assigned at Female 08/17/2020 6:26 PM EDT Legal Sex Female 9:25 AM EST Gender Identity Female 08/17/2020 6:26 PM EDT Sexual Orientation Straight 08/17/2020 6: 26 PM EDT Last Filed Vital Signs Vital Sign Reading Time Taken Comments Blood Pressure 120/80 07/25/2020 10:41 AM EST Pulse 74 07/25/2020 10:41 AM EST Temperature - - Respiratory Rate 18 05/04/2014 9:15 AM EST Oxygen Saturation - - Inhaled Oxygen Concentration - - Weight 91.6 kg (202 lb) 07/25/2020 10:41 AM EST Height 165.1 cm (5' 5 ) 07/25/2020 10:41 AM EST Body Mass Index 33.61 07/25/2020 10:41 AM EST Plan of Treatment Health Maintenance Due Date Last Done Comments Depression Screen 1973 HIV screen 1976 Hepatitis C screen 10/02/1979 Lipids 2001 Colonoscopy 2006 Colorectal Cancer Screen 2006 FIT/FOBT: Average risk 2006 Fecal-DNA (Cologuard): Average risk 2006 Sigmoidoscopy/CT colonography 2006 Pneumococcal 50+ years Vaccine (1 of 1 - PCV) 10/02/2011 Shingles vaccine (1 of 2) 10/02/2011 COVID-19 Vaccine (2 - season) 2024 03/15/2022 Flu vaccine (Season Ended) 12/17/202403/15, 03/20/2021, 03/20/2020, Additional history exists Breast cancer screen 04/12/2026 04/12/2024, 04/08/2023, 04/04/2022, Additional history exists DTaP/Tdap/Td vaccine (2 - Tdap) 06/02/2030 06/02/2020, 03/07/2016 Respiratory Syncytial Virus (RSV) or age 60 yrs+ (1 - 1-dose 75+ series) 2036 Cervical cancer screen Discontinued HPV (without or with Pap) Discontinued 04/29/2017 Pap smear Discontinued 04/29/2017, 04/19, 05/04/2014, Additional history exists Hepatitis A vaccine Aged Out No longe r eligible based on patient's age to complete this topic Hepatitis B vaccine Aged Out No longe r eligible based on patient's age to complete this topic Hib vaccine Aged Out No longer eligi ble based on patient's age to complete this topic Meningococcal (ACWY) vaccine Aged Out No longer eligible based on patient's age to complete this topic Meningococcal B vaccine Aged Out No l onger eligible based on patient's age to complete this topic Polio vaccine Aged Out No longer elig ible based on patient's age to complete this topic Procedures Procedure Name Priority Date/Time Associated Diagnosis Comments JOSSELIN ISABEL DIGITAL SCREEN SELF REFERRAL W OR WO CAD BILATERAL Routine 04/12/2024 11:34 AM EST Visit for screening mammogram PAPER TESTER CYTOLOGY Routine 04/29/2017 1:22 PM EST HUMAN PAPILLOMAVIRUS (HPV) DNA PROBE THIN PREP HIGH RISK Routine 04/29/2017 9:43 AM EST from Last 3 Months or Most Recently Relevant to Health Maintenance Results * JOSSELIN ISABEL DIGITAL SCREEN SELF REFERRAL W OR WO CAD BILATERAL (04/12/2024 11:34 AM EST) Anatomical Region Laterality Modality Breast Bilateral Mammography 04/12/2024 11:5 7 AM EST Impressions 04/12/2024 12:01 PM EST No mammographic evidence of malignancy. BIRADS: BIRADS - CATEGORY 1 Negative, no evidence of malignancy. Normal interval follow-up is recommended in 12 months. OVERALL ASSESSMENT - NEGATIVE A letter of notification will be sent to the patient regarding the results. The [place] [employer] and the [place] [employer] recommend annual mammograms for women 40 years and older. Performing Facility: [place] [address] Narrative 04/12/2024 12:01 PM EST EXAMINATION: SCREENING DIGITAL BILATERAL MAMMOGRAM WITH TOMOSYNTHESIS, [...] area of architectural distortion. Prepectoral silicone implants. Chloe Ribeiro MD IMG MAMMOGRAPHY ORDERABLES Final Result * PAPER TESTER Cytology (04/29/2017 1:22 PM EST) Cytology Report (NOTE) [id number] [facility] [employer] [facility] ANATOMIC PATHOLOGY [address] [place] [address] GYNECOLOGIC CYTOLOGY REPORT Patient Name: GWEN HORNER MR#: [id number] Specimen #[id number] Source: 1: Vaginal material, (ThinPrep vial, Imaging-assisted review) Clinical History Estrogen Hysterectomy: TAHBSO Z01.419 Routine parlor maid exam without abnormal findings Z11.51 Encounter for screening for HPV Co-Test: ThinPrep Pap with high risk HPV testing INTERPRETATION Vaginal material, (ThinPrep vial, Imaging-assisted review): Specimen Adequacy: Satisfactory for evaluation. Descriptive Diagnosis: Negative for intraepithelial lesion or malignancy. Fungal organisms morphologically consistent with Patricia species. Comments: High Risk HPV testing was ordered. Horse Trader: RUSSELL Alvarado(ASCP) Electronically Signed Out eligio/05/09/2017 Procedure/Addendum HPV Procedure Report Date Ordered: 04/30/2017 Status: Signed Out Date Complete: 04/30/2017 By: RUSSELL Davey(ASCP) Date Reported: 05/09/2017 INTERPRETATION Imani HPV DNA High Risk HPV Sample Thin Prep (Ref Range) HPV Type 16 Not Detected (Not Detected) HPV Type 18 Not Detected (Not Detected) Other High Risk HPV Not Detected (Not Detected) This test amplifies and detects DNA of 14 high-risk HPV types associated with cervical cancer and its precursor lesions (HPV types 16, 18, 31, 33, 35, 39, 45, 51, 52, 56, 58, 59, 66, and 68). Sensitivity may be affected by specimen collection methods, stage of infection, and the presence of interfering substances. Results should be interpreted in conjunction with other available laboratory and clinical data. A negative high-risk HPV result does not exclude the possibility of future cytologic HSIL or underlying CIN2-3 or cancer. This test is intended for medical purposes only and is not valid for the evaluation of suspected sexual abuse or for other forensic purposes. 05/09/2017 12:00 AM EST [employer] 04/29/2017 1:22 PM EST 04/30/2017 1:22 PM EST Malissa Thornton APRN - CN PATHOLOGY/CYTOLOGY OR DERABLES Edited Result - Final [facility] [address] [place] [address], [facility] [phone] [facility] [id number] [place] [address], [facility] [phone] * Human papillomavirus (HPV) DNA probe thin prep high risk (04/29/2017 9:43 AM EST) HPV SOURCE .VAGINAL MATERIAL 04/30/2017 9:43 AM EST [employer] HPV Sample .THIN PREP 04/30/2017 9:43 AM [employer] HPV, Genotype 16 Not Detected NOTDET 04/30/2017 2:51 PM [employer] HPV, Genotype 18 Not Detected NOTDET 04/30/2017 2:51 PM EST [employer] HPV, High Risk Other Not Detected NOTDET 04/30/2017 2:51 PM EST [employer] HPV, Interpretation 04/30/2017 2:51 PM EST [employer] Comment: This test amplifies and detects DNA of 14 high-risk HPV types associated with cervical cancer and its precursor lesions (HPV types 16,18, 31, 33, 35, 39, 45, 51, 52, 56, 58, 59, 66, and 68). Sensitivity may be affected by specimen collection methods, stage of infection, and the presence of interfering substances. Results should be interpreted in conjunction with other available laboratory and clinical data. A negative high-risk HPV result does not exclude the possibility of future cytologic HSIL or underlying CIN2-3 or cancer. This test is intended for medical purposes only and is not valid for the evaluation of suspected sexual abuse or for other forensic purposes. Performed at [address] [id number] [phone] 04/29/2017 9:43 AM EST 04/30/2017 9:43 AM EST Malissa Thornton CANCER REGISTRY COORDINATOR - CNM HEMATOLOGY ORDERABLES Final Result [facility] [address] [place] [address], [facility] [phone] [address] [[email or web address]] [phone] from Last 3 Months or Most Recently Relevant to Health Maintenance Insurance Care Teams Epidemiology Intern Relationship Specialty Start Date End Date Chloe Ribeiro MD [address] [place] [address] PCP - General 04/12/13
--- OUTSIDE RECORDS SUMMARY | 2024-10-07 13:30 | XMS_ITS | Patient Health Record ---
Author Organization The [facility] in [place] Address [address] [place] [address] Care Team Providers Care Messenger Floorperson Name Role Phone Chloe Ribeiro Primary Care Provider David Jett Unavailable [phone] Reason For Referral No Information Encounters Encounter Location Date Provider Diagnosis Pulmonary Medicine [place] [address] [place] [address] 08/12/2024 David Harmon Plan Of Treatment Next Appt Details Provider Name:David Harmon, 10/28/2024 10:00:00 AM, [address] [place], [address], Insurance Providers Payer Name Payer Address Payer Phone Subscriber Number Group Number Insured Name Patient Relationship to Insured Coverage Start Date Coverage End Date [employer] [address] [place] [address] [id number] Gwen Spangler Self - patient is the insured [facility] [address] [place], [place] [id number] Gwen Spangler Self - patient is the insured
--- OUTSIDE RECORDS SUMMARY | 2024-10-07 13:30 | XMS_ITS | Clinical Summary ---
Author Organization [facility] Address [address] [place] [address] Care Team Providers Care Gas Meter Checker Name Role Phone Chloe Ribeiro MD Primary Care Provider [phone] Allergies Active Allergy Reactions Criticality Noted Date Comments Amoxicillin Diarrhea,GI bleeding,GI intolerance 02/02/2024 Medications tiZANidine (Zanaflex) 4 MG tablet .COMPLEX 02/03/2024 Active amLODIPine (Norvasc) 5 MG tablet Daily 01/05/2024 Active aspirin 81 MG EC tablet Daily 08/04/2023 Active biotin 10 MG capsule Daily 09/18/2023 Active lisinopril 40 MG tablet Take 40 mg by mouth Daily Active metoprolol succinate XL (Toprol-XL) 50 MG 24 hr tablet Daily 12/15/2023 Act jacob FLUoxetine (PROzac) 10 MG capsule Daily 01/05/2024 Active fluticasone (Flonase) 50 MCG/ACT nasal spray Daily 12/26/2023 Active EPINEPHrine (Epipen) 0.3 MG/0.3ML injection syringe .COMPLEX 12/22/2023 Active tiZANidine (Zanaflex) 4 MG tabletIndication s:Internal derangement of right shoulder Take 1 tablet (4 mg) by mouth every 8 (eight) hours if needed for muscle spasms for up to 10 days 30 tablet 03/17/2024 Active Fexofenadine-Pse udoephedrine (SUKI-D 12 HOUR PO) Active Active Problems Problem Noted Date Diagnosed Date Generalized anxiety disorder 04/02/2024 Asthma 04/02/2024 Essential hypertension 04/02/2024 Irritable bowel syndrome wit h both constipation and diarrhea 04/02/2024 Immunizations Immunization Administration Dates Next Due DTaP, Unspecified 06/02/2020 Influenza, Unspecified 03/17/2020,03/10/2018, Influenza, injectable, quadr ivalent, preservative free 03/15/2022,03/20/2021,03/20/2020,2015 Influenza, seasonal, injectable 03/19/2017 Influenza, seasonal, injecta ble, preservative free 04/17/2015 Td (adult), 5 Lf tetanus tox oid, preservative free, adsorbed 03/07/2016 Social History Tobacco Use Types Packs/Day Years Used Date Smoking Tobacco: Never Smokeless Tobacco: Never Tobacco Cessation:Counseling Given: Not Answered Alcohol Use Standard Drinks/Week Comments Not Currently 0 (1 standard drink = 0.6 oz pur e alcohol) Comments Unknown Sex and Gender Information Value Date Recorded Sex Assigned at Not on file Legal Sex Female 7:28 PM EDT Gender Identity Not on file Sexual Orientation Not on file Last Filed Vital Signs Vital Sign Reading Time Taken Comments Blood Pressure 136/82 08/05/2018 12:00 PM EDT Pulse - - Temperature - - Respiratory Rate - - Oxygen Saturation - - Inhaled Oxygen Concentration - - Weight 92.1 kg (203 lb) 03/13/2021 12:00 PM EDT Height 165.1 cm (5' 5 ) 03/13/2021 12:00 PM EDT Body Mass Index 33.78 03/13/2021 12:00 PM EDT Plan of Treatment Health Maintenance Due Date Last Done Comments CT Colonography 1961 Colonoscopy 1961 Colorectal Cancer Screening 1961 FIT-DNA 1961 FIT 1961 FOBT 1961 Sigmoidoscopy 1961 Pap Smear 04/29/2020 04/29/2017 Cervical Cancer Screening 04/29/2022 HPV/Cotest 04/29/2022 04/29/2017 Influenza Vaccine (Season Ended) 2025 03/15/2022, 03/20/2021, 03/20/2020, Additional history exists Mammogram 04/12/2025 04/12/2024, 03/20, 04/08/2023, Additional history exists Insurance [employer] Care Teams Gas Meter Checker Relationship Specialty Start Date End Date Chloe Ribeiro MD PCP - General Family Medicine 03/03/24
--- OUTSIDE RECORDS SUMMARY | 2024-10-07 13:31 | XMS_ITS | Encounter Summary ---
Author Organization [facility] Address [address] [place] [address] Care Team Providers Care Sugar Chipper Machine Operator Name Role Phone Chloe Ribeiro MD Primary Care Provider [phone] Reason for Visit * Reason Comments Other Encounter Details Date Type Department Care Team (Late st Contact Info) Description 12/17/2014 Chato Mar[facility] [address] [place] [address] Malissa Thornton, DENTAL MOLD MAKER - [facility] [address] [facility] [address] [place] [address] Other Social History Tobacco Use Types Packs/Day Years Used Date Smoking Tobacco: Never Smokeless Tobacco: Never Alcohol Use Standard Drinks/Week Comments Yes 0 (1 standard drink = 0.6 oz pur e alcohol) Comments No Sex and Gender Information Value Date Recorded Sex Assigned at Female 08/17/2020 6:26 PM EDT Legal Sex Female 9:25 AM EST Gender Identity Female 08/17/2020 6:26 PM EDT Sexual Orientation Straight 08/17/2020 6: 26 PM EDT documented as of this encounter Plan of Treatment Not on file documented as of this encounter Visit Diagnoses Not on filedocumented in this encounter Care Teams Sugar Chipper Machine Operator Relationship Specialty Start Date End Date Chloe Ribeiro MD [address] [facility] [place] [address] PCP - General 04/12/13 documented as of this encounter
--- OUTSIDE RECORDS SUMMARY | 2024-10-07 13:31 | XMS_ITS | Clinical Summary ---
Author Organization That{img} tem Address [id number] [address] [place] [address] Care Team Providers Care Ad Compositor Name Role Phone Chloe Ribeiro MD Primary Care Provider Allergies No known active allergies Medications lisinopriL (PRINIVIL,ZESTR IL) 20 mg tablet Take 20 mg by mouth daily. Active metoprolol succinate XL (TOPROL-XL) 50 mg 24 hr tablet Take 50 mg by mouth daily. Active tiZANidine (ZANAFLEX) 4 mg tablet Take 4 mg by mouth nightly. Active fluticasone propion-salmete roL (ADVAIR) 100-50 mcg/dose DISKUS Inhale 1 puff daily. Active fexofenadine-ps eudoephedrine (SUKI-D) 60-120 mg per 12 hr tablet Take 1 tablet by mouth daily. Active estrogens, conjugated, (PREMARIN) 0.3 mg tablet Take 0.3 mg by mouth 2 (two) times a week. Active numwkgbo-uakt-B A-calcium &mins (THERAGRAN-M) 9 mg iron-400 mcg tablet Take 1 tablet by mouth daily. Active calcium carbonate (OS-CAPO) 600 mg (1,500 mg) tablet Take 600 mg by mouth 2 (two) times a day with meals. Active fluticasone propionate (FLONASE) 50 mcg/actuation nasal spray Administer 1 spray into each nostril daily. Active biotin 1 mg capsule Take by mouth daily. Active docusate sodium (COLACE) 100 mg capsule Take 100 mg by mouth 2 (two) times a day as needed for constipation. Active albuterol (PROVENTIL HFA;VENTOLIN HFA) 90 mcg/actuation inhaler Inhale 2 puffs every 6 (six) hours as needed for wheezing. Active Active Problems No known active problems Family History * Patient is adopted Medical History Relation Name Comments No Known Problems Father No Known Problems Mother Relation Name Status Comments Father Other Mother Other Social History Tobacco Use Types Packs/Day Years Used Date Smoking Tobacco: Never Smokeless Tobacco: Never Alcohol Use Standard Drinks/Week Comments Yes 0 (1 standard drink = 0.6 oz pur e alcohol) social Comments No Sex and Gender Information Value Date Recorded Sex Assigned at Not on file Legal Sex Female 1:25 PM EDT Gender Identity Not on file Sexual Orientation Not on file Last Filed Vital Signs Vital Sign Reading Time Taken Comments Blood Pressure 140/94 04/04/2021 11:57 AM EST Pulse 73 04/04/2021 11:57 AM EST Temperature 36 C (96.8 F) 04/04/2021 9:30 AM EST Respiratory Rate 15 04/04/2021 11:57 AM EST Oxygen Saturation 91% 04/04/2021 11:57 AM EST Inhaled Oxygen Concentration - - Weight 90.7 kg (200 lb) 04/04/2021 6:32 AM EST Height 165.1 cm (5' 5 ) 04/04/2021 6:32 AM EST Body Mass Index 33.28 04/04/2021 6:32 AM EST Plan of Treatment Health Maintenance Due Date Last Done Comments Depression Screening 1973 Tobacco Screening 1973 Adult BMI Screening 10/02/1979 DTaP,Tdap and Td Vaccines (1 - Tdap) 1980 Zoster (Shingles) Vaccine (1 of 2) 10/02/2011 COVID-19 Vaccine (3 - 2023-2 5 season) 2024 11/03/2020, 10/07/2020 Influenza Vaccine 01/17/2025 03/20/2021, , 03/19/2017, Additional history exists Medical Devices Implanted Type Area Spanish Interpreter/Translator Device Identifier Shelf Expiration Date Model / Serial / Lot Implant Bio Tiss Med Bvn At [facility] Dev Bioinductive Impl - Sna - [id number] Implanted:Qty: 1 on 04/04/2021 by Gee Jurado DO at [facility] Mesh [employer] 07/08/2021 [id number] / NA / [id number] [place] Sut Regeneten Tndn Rotr Cuf Repr - Sna - [id number] Implanted:Qty: 1 on 04/04/2021 by Gee Jurado, DO at [facility] Other Implant [employer] 03/13/2023 [id number] / NA / [id number] [place] Sut Bn Ascp Dlv - Sna - [id number] Implanted:Qty: 1 on 04/04/2021 by Gee Jurado, DO at [facility] Other Implant [employer] 11/16/2023 [id number] / NA / [id number] Healicoil Regenesorb Implanted:Qty: 1 on 04/04/2021 by Gee Jurado, DO at [facility] [employer] ORTHO 10/19/2023 [id number] / NA / [id number] Healicoil Knotlessv Regenesorb Implanted:Qty: 1 on 04/04/2021 by Gee Jurado, DO at [facility] [employer]O 10/03/2023 [id number] / NA / [id number] Healicoil Knotless Regenesorb Implanted:Qty: 1 on 04/04/2021 by Gee Jurado, DO at [facility] [employer]O 12/21/2022 [id number] / NA / [id number] Insurance Advance Directives Documents on File Type Date Recorded Patient Electrical Maintenance Man Expl anation Living Will 04/04/2021 6:51 AM Care Teams Ad Compositor Relationship Specialty Start Date End Date Chloe Ribeiro MD [address] [place] [address] PCP - General Family Medicine 03/13/21
== END 2024-10-07 13:29 | disposition home or self-care (01) ==
LOC: LAB 13:28
PROVIDERS: PCP Family Medicine; Visit Provider Internal Medicine
DX: R19.7 Diarrhea, unspecified (principal); K92.1 Melena
CPT/HCPCS: 36415; 87507